=== PATIENT | male | born 1940 | race Caucasian/White ===

== ENCOUNTER 2017-05-30 09:53 | Emergency (ER) | payer MEDICARE, OTHER ==
[~2017-05-30] VITALS: Ht 172.7 cm; Wt 80.7 kg
[~2017-05-30 09:53] MED LIST: ALBU90OI61 INH; AMLO5 PO; ASPI325 PO; AZIT250 PO; Amlodipine Besy10 MG PO; Aspir 8181 MG PO; CHOL10002; CLOP75 PO; CYCL10 PO; ERGO50000 PO; GABA300 PO; HYDACE5 PO; HYDROCODON-ACE1 EAC2 PO; Hydrocodone-Ap1 EA20 PO; LISHYD1012 PO; MELO7.5 PO; Monodox100 MG PO; NAPR500 PO; POTA10T PO; PRED20 PO; PROCODE120 PO; Prednisone20 MG PO
[2017-05-30] MEDS ORDERED: Cheratussin AC118 ML PO (11:43)
[2017-05-30] MEDS ORDERED: Mucinex600 MG PO (11:43)
[2017-05-30] MEDS ORDERED: Flonase 0.05% N16 GM (11:43)
== END 2017-05-30 11:48 | disposition home or self-care (01) ==
LOC: ER 09:53
DX: J31.0 Chronic rhinitis (principal); I10 Essential (primary) hypertension; F17.210 Nicotine dependence, cigarettes, uncomplicated; J44.9 Chronic obstructive pulmonary disease, unspecified; Z79.899 Other long term (current) drug therapy; Z79.82 Long term (current) use of aspirin
CPT/HCPCS: 71046; 99283

== ENCOUNTER 2018-08-29 13:05 | Emergency (ER) | payer MEDICARE, OTHER ==
[~2018-08-29] VITALS: Ht 167.6 cm; Wt 79.4 kg
[~2018-08-29 13:05] MED LIST changes: +CITA20 PO; +Cheratussin AC118 ML PO; +Flonase 0.05% N16 GM; +GABA300; +Mucinex600 MG PO
== END 2018-08-29 13:43 | disposition home or self-care (01) ==
LOC: ER 13:05
DX: R05 Cough (principal); Z79.899 Other long term (current) drug therapy; I10 Essential (primary) hypertension; J44.9 Chronic obstructive pulmonary disease, unspecified; F17.200 Nicotine dependence, unspecified, uncomplicated
CPT/HCPCS: 99282

== ENCOUNTER 2018-09-26 21:43 | Emergency (ER) | payer MEDICARE, OTHER ==
[~2018-09-26] VITALS: Ht 167.6 cm; Wt 79.8 kg
[2018-09-26 22:41] LABS: Source, Urine Clean Catch
[2018-09-26 22:43] LABS: Bilirubin, Urine Neg (Neg); Blood, Urine Neg (Neg); Glucose Qualitative, Urine 4+ (Neg); Ketones, Urine Neg (Neg); Leukocyte Esterase, Urine Neg (Neg); Nitrite, Urine Neg (Neg); Protein, Urine Neg (Neg); Urobilinogen, Urine NORM (Normal)
[2018-09-26 22:48] LABS: Appearance, Urine Clear (Clear); Color, Urine Yellow (P-Yellow)
[2018-09-27] MEDS ORDERED: LOVA40 (00:10)
[2018-09-27] MEDS ORDERED: TAMS.4ER PO (00:10)
[2018-09-27] MEDS ORDERED: Nystatin15 GM TOP (00:31)
[2018-09-27] MEDS ORDERED: METF500 PO (00:38)
== END 2018-09-27 00:50 | disposition home or self-care (01) ==
LOC: ER 21:43
PROVIDERS: Emergency Medicine
DX: N48.1 Balanitis (principal); E11.65 Type 2 diabetes mellitus with hyperglycemia; Z79.899 Other long term (current) drug therapy; I10 Essential (primary) hypertension; J44.9 Chronic obstructive pulmonary disease, unspecified; F17.210 Nicotine dependence, cigarettes, uncomplicated
CPT/HCPCS: 81003; 82947; 99283

== ENCOUNTER 2018-12-27 16:44 | Emergency (ER) | payer MEDICARE, OTHER ==
[~2018-12-27] VITALS: Ht 172.7 cm; Wt 77.1 kg
[~2018-12-27 16:44] MED LIST changes: +LOVA40; +METF500 PO; +Nystatin15 GM TOP; +TAMS.4ER PO
[2018-12-27] MEDS ORDERED: Eucerin Creme454 GM TOP (17:01)
== END 2018-12-27 17:38 | disposition home or self-care (01) ==
LOC: ER 16:44
DX: R21 Rash and other nonspecific skin eruption (principal); I10 Essential (primary) hypertension; J44.9 Chronic obstructive pulmonary disease, unspecified; F17.200 Nicotine dependence, unspecified, uncomplicated; Z79.899 Other long term (current) drug therapy; Z79.84 Long term (current) use of oral hypoglycemic drugs
CPT/HCPCS: 99282

== ENCOUNTER → 2019-11-21 | Outpatient (CLI) | payer MEDICARE, OTHER ==
[~2019-11-21] MED LIST changes: +Eucerin Creme454 GM TOP
[2019-11-21 19:57] LABS: BASOPHILS ABSOLUTE AUTO 0.07 K/mm3 (0.00-0.23); BASOPHILS PERCENT AUTO 1 % (0-2); EOSINOPHILS ABSOLUTE AUTO 0.12 K/mm3 (0.00-0.68); EOSINOPHILS PERCENT AUTO 1 % (0-6); Hematocrit 51.1 % (37.0-53.0); Hemoglobin 17.2 g/dL (13.5-17.5); IMMATURE GRAN ABSOLUTE AUTO 0.06 K/mm3 (0.00-0.10); IMMATURE GRAN PERCENT AUTO 1 % (0-1); LYMPHOCYTES ABSOLUTE AUTO 1.53 K/mm3 (0.84-5.20); LYMPHOCYTES PERCENT AUTO 17 % (21-46); MONOCYTES ABSOLUTE AUTO 0.59 K/mm3 (0.16-1.47); MONOCYTES PERCENT AUTO 7 % (4-13); Mean Corpuscular HGB 29.8 pg (26.0-34.0); Mean Corpuscular HGB Conc 33.7 g/dL (31.5-36.5); Mean Corpuscular Volume 89 fL (80-100); Mean Platelet Volume 10.8 fL (9.1-12.4); NEUTROPHILS ABSOLUTE AUTO 6.54 K/mm3 (1.96-9.15); NEUTROPHILS PERCENT AUTO 73 % (41-73); Platelet Count 268 K/mm3 (150-400); RDW Coefficient Variation 12.6 % (11.7-14.2); RDW Standard Deviation 40.8 fL (35.1-46.3); Red Blood Cell Count 5.77 M/mm3 (4.30-5.90); White Blood Cell Count 8.91 K/mm3 (4.00-11.30)
[2019-11-21 20:18] LABS: Alanine Aminotransfer (ALT/SGP 21 U/L (12-78); Albumin, Blood 4.1 g/dL (3.4-5.0); Alk Phos 87 U/L (50-136); Anion Gap 9 mmol/L (6-16); Aspartate Aminotrans (AST/SGOT 10 U/L (12-37); Bilirubin, Total 0.4 mg/dL (0.1-1.0); Blood Urea Nitrogen 9 mg/dL (8-24); Bun/Creatinine Ratio 12.8 (12.0-20.0); CO2, Blood 26 mmol/L (21-32); Calcium, Blood 9.6 mg/dL (8.5-10.1); Chloride, Blood 99 mmol/L (98-108); Cholesterol 183 mg/dL (50-200); Globulin, Blood 4.1 g/dL (2.2-4.0); Glomerular Filtration Rate >60 (60-); Glucose, Blood 452 mg/dL (70-99); Potassium, Blood 4.3 mmol/L (3.5-5.5); Sodium, Blood 134 mmol/L (136-145); Total Protein, Blood 8.2 g/dL (6.4-8.2); Triglycerides 161 mg/dL (30-160); Very Low Density Lipoprot Chol 32 mg/dL (6-32)
[2019-11-21 20:26] LABS: CHOL/HDL RATIO 3.6; HDL Cholesterol 51 mg/dL (>39); Low Density Lipoprotein Chol 100 mg/dL (0-110)
[2019-11-22 12:20] LABS: PSA, %Free 22.9 %; PSA, Free 0.346 ng/mL
== END | disposition home or self-care (01) ==
LOC: LAB SHORT 19:35 → LAB 19:35
PROVIDERS: Family Medicine
DX: N39.41 Urge incontinence (principal); E11.65 Type 2 diabetes mellitus with hyperglycemia; R39.12 Poor urinary stream; I10 Essential (primary) hypertension
CPT/HCPCS: 80053; 80061; 84153; 84154; 84443; 85025

== ENCOUNTER 2019-11-22 00:25 | Emergency (ER) | payer MEDICARE, OTHER ==
[~2019-11-22] VITALS: Ht 172.7 cm; Wt 70.3 kg
[2019-11-22 02:20] LABS: BASOPHILS PERCENT AUTO 1 % (0-2); EOSINOPHILS ABSOLUTE AUTO 0.07 K/mm3 (0.00-0.68); EOSINOPHILS PERCENT AUTO 1 % (0-6); IMMATURE GRAN ABSOLUTE AUTO 0.07 K/mm3 (0.00-0.10); IMMATURE GRAN PERCENT AUTO 1 % (0-1); LYMPHOCYTES ABSOLUTE AUTO 2.05 K/mm3 (0.84-5.20); LYMPHOCYTES PERCENT AUTO 17 % (21-46); MONOCYTES ABSOLUTE AUTO 1.04 K/mm3 (0.16-1.47); MONOCYTES PERCENT AUTO 8 % (4-13); Mean Corpuscular Volume 88 fL (80-100); NEUTROPHILS ABSOLUTE AUTO 9.03 K/mm3 (1.96-9.15); NEUTROPHILS PERCENT AUTO 73 % (41-73); Platelet Count 249 K/mm3 (150-400); RDW Coefficient Variation 12.7 % (11.7-14.2); RDW Standard Deviation 41.1 fL (35.1-46.3); Red Blood Cell Count 5.67 M/mm3 (4.30-5.90); White Blood Cell Count 12.36 K/mm3 (4.00-11.30)
[2019-11-22 02:37] LABS: Base Excess Venous 3.3 mmol/L; Bicarbonate Venous 27.1 mmol/L (24.0-30.0); PCO2 Venous 40.9 mmHg (38-42); PO2 Venous 157 mmHg (38-42); pH Blood Venous 7.44 (7.34-7.37)
[2019-11-22 02:46] LABS: Alanine Aminotransfer (ALT/SGP 17 U/L (12-78); Albumin, Blood 3.9 g/dL (3.4-5.0); Alk Phos 85 U/L (50-136); Anion Gap 10 mmol/L (6-16); Aspartate Aminotrans (AST/SGOT 10 U/L (12-37); Beta-hydroxybutyrate 2.7 mg/dL (0.2-2.8); Bilirubin, Total 0.7 mg/dL (0.1-1.0); Blood Urea Nitrogen 10 mg/dL (8-24); Bun/Creatinine Ratio 13.9 (12.0-20.0); CO2, Blood 26 mmol/L (21-32); Calcium, Blood 9.3 mg/dL (8.5-10.1); Chloride, Blood 99 mmol/L (98-108); Creatinine, Blood 0.72 mg/dL (0.60-1.20); Globulin, Blood 3.9 g/dL (2.2-4.0); Glomerular Filtration Rate >60 (60-); Glucose, Blood 266 mg/dL (70-99); Potassium, Blood 3.6 mmol/L (3.5-5.5); Sodium, Blood 135 mmol/L (136-145); Total Protein, Blood 7.8 g/dL (6.4-8.2)
== END 2019-11-22 03:58 | disposition home or self-care (01) ==
LOC: ER 00:25
PROVIDERS: Emergency Medicine
DX: E11.65 Type 2 diabetes mellitus with hyperglycemia (principal); I10 Essential (primary) hypertension; J44.9 Chronic obstructive pulmonary disease, unspecified; F17.210 Nicotine dependence, cigarettes, uncomplicated; Z79.02 Long term (current) use of antithrombotics/antiplatelets; Z79.84 Long term (current) use of oral hypoglycemic drugs; Z79.899 Other long term (current) drug therapy
CPT/HCPCS: 80053; 82010; 82803; 82947; 83690; 85025; 96360; 99283-25; J7030

== ENCOUNTER → 2020-11-14 | Outpatient (CLI) | payer MEDICARE, OTHER ==
[2020-11-14 19:27] LABS: Alanine Aminotransfer (ALT/SGP 21 U/L (12-78); Alk Phos 66 U/L (50-136); Anion Gap 6 mmol/L (6-16); Aspartate Aminotrans (AST/SGOT 16 U/L (12-37); Bilirubin, Total 0.4 mg/dL (0.1-1.0); Blood Urea Nitrogen 10 mg/dL (8-24); Bun/Creatinine Ratio 14.1 (12.0-20.0); CO2, Blood 27 mmol/L (21-32); Calcium, Blood 9.5 mg/dL (8.5-10.1); Chloride, Blood 104 mmol/L (98-108); Creatinine, Blood 0.71 mg/dL (0.60-1.20); Glomerular Filtration Rate >60 (60-); Glucose, Blood 73 mg/dL (70-99); Potassium, Blood 3.8 mmol/L (3.5-5.5); Sodium, Blood 137 mmol/L (136-145)
[2020-11-14 19:30] LABS: CHOL/HDL RATIO 4.2; Cholesterol 213 mg/dL (50-200); HDL Cholesterol 51 mg/dL (>39); LDL/HDL RATIO 2.3; Low Density Lipoprotein Chol 118 mg/dL (0-110); Triglycerides 221 mg/dL (30-160); Very Low Density Lipoprot Chol 44 mg/dL (6-32)
== END | disposition home or self-care (01) ==
LOC: LAB SHORT 18:17 → LAB 18:17
PROVIDERS: Family Medicine
DX: Z00.00 Encounter for general adult medical examination without abnormal findings (principal); Z11.59 Encounter for screening for other viral diseases; E78.2 Mixed hyperlipidemia
CPT/HCPCS: 80053; 80061; 86803

== ENCOUNTER 2021-01-15 15:20 | Emergency (ER) | payer OTHER, MEDICARE ==
[~2021-01-15] VITALS: Ht 167.6 cm; Wt 77.1 kg
[2021-01-15] MEDS ORDERED: LIDO700A20 TOP (16:19)
[2021-01-15] MEDS ORDERED: CYCL10 PO (16:19)
== END 2021-01-15 16:34 | disposition home or self-care (01) ==
LOC: ER 15:20
DX: S39.012A Strain of muscle, fascia and tendon of lower back, initial encounter (principal); I10 Essential (primary) hypertension; J44.9 Chronic obstructive pulmonary disease, unspecified; F17.210 Nicotine dependence, cigarettes, uncomplicated; Z79.84 Long term (current) use of oral hypoglycemic drugs; Z79.899 Other long term (current) drug therapy; V89.9XXA Person injured in unspecified vehicle accident, initial encounter
CPT/HCPCS: 72100; 99283-25; A9270

== ENCOUNTER 2021-01-20 14:24 | Emergency (ER) | payer MEDICARE, OTHER ==
[~2021-01-20] VITALS: Ht 167.6 cm; Wt 77.1 kg
[~2021-01-20 14:24] MED LIST changes: +LIDO700A20 TOP
[2021-01-20] MEDS ORDERED: DOCU100 PO (15:54)
== END 2021-01-20 16:15 | disposition home or self-care (01) ==
LOC: ER 14:24
DX: K59.00 Constipation, unspecified (principal); I10 Essential (primary) hypertension; J44.9 Chronic obstructive pulmonary disease, unspecified; F17.210 Nicotine dependence, cigarettes, uncomplicated; Z79.899 Other long term (current) drug therapy
CPT/HCPCS: 74018; 99283-25; A9270

== ENCOUNTER → 2021-06-29 | Outpatient (CLI) | payer MEDICARE, OTHER ==
[~2021-06-29] MED LIST changes: +ASPI81CH PO; +CILO100 PO; +DOCU100 PO; +DONEPEZIL HCL5 M2 PO; +GLIP5ER PO; +GLYBURIDE5 MG PO; -LOVA40; +Lovastatin20 MG PO
[2021-06-29 22:16] LABS: Free Thyroxine 1.02 ng/dL (0.70-1.60); Thyroid Stimulating Hormone 7.27 uIU/mL (0.360-4.800)
== END | disposition home or self-care (01) ==
LOC: LAB SHORT 16:20
PROVIDERS: Family Medicine
DX: E11.65 Type 2 diabetes mellitus with hyperglycemia (principal); R79.89 Other specified abnormal findings of blood chemistry
CPT/HCPCS: 83036; 84439; 84443

== ENCOUNTER 2021-07-01 10:11 | Day surgery (SDC) | payer MEDICARE, OTHER ==
[~2021-07-01] VITALS: Ht 167.6 cm; Wt 77.0 kg
[2021-07-01 11:16] LABS: BASOPHILS ABSOLUTE AUTO 0.07 K/mm3 (0.00-0.23); BASOPHILS PERCENT AUTO 1 % (0-2); EOSINOPHILS ABSOLUTE AUTO 0.19 K/mm3 (0.00-0.68); EOSINOPHILS PERCENT AUTO 2 % (0-6); Hematocrit 48.8 % (37.0-53.0); IMMATURE GRAN ABSOLUTE AUTO 0.05 K/mm3 (0.00-0.10); IMMATURE GRAN PERCENT AUTO 1 % (0-1); LYMPHOCYTES ABSOLUTE AUTO 2.01 K/mm3 (0.84-5.20); LYMPHOCYTES PERCENT AUTO 24 % (21-46); MONOCYTES ABSOLUTE AUTO 0.64 K/mm3 (0.16-1.47); MONOCYTES PERCENT AUTO 8 % (4-13); Mean Corpuscular HGB 31.2 pg (26.0-34.0); Mean Corpuscular HGB Conc 34.8 g/dL (31.5-36.5); Mean Corpuscular Volume 90 fL (80-100); Mean Platelet Volume 9.7 fL (9.1-12.4); NEUTROPHILS ABSOLUTE AUTO 5.44 K/mm3 (1.96-9.15); NEUTROPHILS PERCENT AUTO 65 % (41-73); Platelet Count 263 K/mm3 (150-400); RDW Coefficient Variation 13.8 % (11.7-14.2); RDW Standard Deviation 44.8 fL (35.1-46.3); Red Blood Cell Count 5.45 M/mm3 (4.30-5.90)
[2021-07-01 11:29] LABS: International Normalized Ratio 1.02; Prothrombin Time Results 10.7 Sec (9.7-11.5)
[2021-07-01 11:37] LABS: Bun/Creatinine Ratio 14.5 (12.0-20.0); Calcium, Blood 9.1 mg/dL (8.5-10.1); Creatinine, Blood 0.76 mg/dL (0.60-1.20); Potassium, Blood 3.9 mmol/L (3.5-5.5)
== END 2021-07-01 23:28 | disposition home or self-care (01) ==
LOC: MHTC 10:11
PROVIDERS: Radiology Diagnostic Radiology
DX: I70.223 Atherosclerosis of native arteries of extremities with rest pain, bilateral legs (principal); I10 Essential (primary) hypertension; E78.5 Hyperlipidemia, unspecified; F17.210 Nicotine dependence, cigarettes, uncomplicated; J44.9 Chronic obstructive pulmonary disease, unspecified; Z79.84 Long term (current) use of oral hypoglycemic drugs
CPT/HCPCS: 37221; 37224; 37228; 75625; 75716; 75774; 76937; 80048; 85025; 85347; 85610; 99152; 99153; C1725; C1760; C1769; C1876; C1887; C1894; J1644; J2250; J3010; J7030; J7040; Q9967

== ENCOUNTER 2021-07-15 10:30 | Day surgery (SDC) | payer MEDICARE, OTHER ==
[~2021-07-15] VITALS: Ht 167.6 cm; Wt 77.1 kg
--- NOTE | 2021-07-15 14:17 | NUR ---
ASSUMED CARE OF PT FROM BETSY GARDINER. PT IN RECOVERY ROOM POST PROCEDURE. LEFT GROIN AND RIGHT FOOT WITH ARTERIAL ACCESS SITES. BOTH APPEAR TO BE SOFT NON TEDNER WITH NO BLEEDING OR ACTIVE OOZING NOTED. PT AOX4, TOLERATES PO FLUID WITH NO DIFFICULTIES. DENIES PAIN. PROVIDED WITH TELEVISION FOR ENTERTAINMENT.NO DISTRESS AT THIS TIME. CALL LIGHT IN REACH. VSS.
[2021-07-15] MEDS ORDERED: CLOP75 PO (14:23)
--- NOTE | 2021-07-15 14:25 | NUR ---
NEW PRESCRIPTIONS CALLED INTO [facility] PER PT REQUEST.
--- NOTE | 2021-07-15 15:20 | NUR ---
PT PREVIOUSLY UP TO RESTROOM, RIGHT POST TIBIAL ARTERIAL SITE HAD BEGAN TO BLEED WHILE AMBULATING BACK TO BED. 10 MINUTES MANUAL PRESSURE HELD, HEMOSTASIS OBTAINED. NEW BONIFACIO PAD PLACED OVER SITE. NO SWELLING OR BRUISING NOTED. LEFT FEMORAL ARTERIAL SITE REMAINS SOFT, NON TENDER, NO BLEEDING. ANGIOSEAL DEVICE USED AT END OF PROCEDURE. DRESSING STILL C/D/I. WILL CONTINUE TO MONITOR BOTH SITES.
--- NOTE | 2021-07-15 16:15 | NUR ---
PT AMB TO BATHRROM WITHOUT ANY ISSUES, GROIN AND PEDAL SITE NO SWELLING/HEMATOMA, DRSGS INTACT. PT DRESSED SELF, SITES REMAIN UNCHANGED; IV REMOVED-CANNULA INTACT.
--- NOTE | 2021-07-15 16:35 | NUR ---
PT RECEIVED DISCHARGE INSTRUCTIONS, SITE MANAGEMENT, MED LIST AND AFTER CARE INSTURCTIONS; VERBALIZED GOOD UNDERSTANDING. PT LEFT FACILITY VIA W/C, CONDITION STABLE.
== END 2021-07-15 16:35 | disposition home or self-care (01) ==
LOC: MHTC 10:30
DX: I70.223 Atherosclerosis of native arteries of extremities with rest pain, bilateral legs (principal); I10 Essential (primary) hypertension; J44.9 Chronic obstructive pulmonary disease, unspecified
CPT/HCPCS: 76937; 85347; 99152; 99153; C1725; C1760; C1769; C1887; C1894; C2623; J1644; J2250; J3010; J7030; J7040; Q9967

== ENCOUNTER → 2022-12-07 | Outpatient (CLI) | payer MEDICARE, OTHER | LOC: LAB 10:02 → LAB SHORT 10:02 | DX: L82.1 Other seborrheic keratosis (principal) | CPT/HCPCS: 88305 ==

== ENCOUNTER 2023-06-21 17:07 | Inpatient (IN) | payer MEDICARE, OTHER ==
[~2023-06-21] VITALS: Ht 167.6 cm; Wt 64.7 kg
[2023-06-21 17:44] LABS: BASOPHILS ABSOLUTE AUTO 0.02 K/mm3 (0.00-0.23); BASOPHILS PERCENT AUTO 0 % (0-2); EOSINOPHILS ABSOLUTE AUTO 0.03 K/mm3 (0.00-0.68); EOSINOPHILS PERCENT AUTO 0 % (0-6); Hematocrit 51.1 % (37.0-53.0); Hemoglobin 16.8 g/dL (13.5-17.5); IMMATURE GRAN ABSOLUTE AUTO 0.02 K/mm3 (0.00-0.10); IMMATURE GRAN PERCENT AUTO 0 % (0-1); LYMPHOCYTES ABSOLUTE AUTO 1.08 K/mm3 (0.84-5.20); LYMPHOCYTES PERCENT AUTO 15 % (21-46); MONOCYTES ABSOLUTE AUTO 0.57 K/mm3 (0.16-1.47); MONOCYTES PERCENT AUTO 8 % (4-13); Mean Corpuscular HGB 30.5 pg (26.0-34.0); Mean Corpuscular HGB Conc 32.9 g/dL (31.5-36.5); Mean Corpuscular Volume 93 fL (80-100); Mean Platelet Volume 11.9 fL (9.1-12.4); NEUTROPHILS ABSOLUTE AUTO 5.57 K/mm3 (1.96-9.15); NEUTROPHILS PERCENT AUTO 76 % (41-73); Platelet Count 204 K/mm3 (150-400); RDW Coefficient Variation 14.1 % (11.7-14.2); RDW Standard Deviation 48.2 fL (35.1-46.3); White Blood Cell Count 7.29 K/mm3 (4.00-11.30)
[2023-06-21 18:00] LABS: Albumin, Blood 3.4 g/dL (3.4-5.0); Albumin/Globulin Ratio 0.9 (0.8-1.8); Bilirubin, Total 1.7 mg/dL (0.1-1.0); Bun/Creatinine Ratio 16.2 (12.0-20.0); Calcium, Blood 8.7 mg/dL (8.5-10.1); Creatinine, Blood 1.11 mg/dL (0.60-1.20); Globulin, Blood 3.6 g/dL (2.2-4.0); Potassium, Blood 3.6 mmol/L (3.5-5.5)
[2023-06-21 18:14] LABS: Source, Urine Clean Catch
[2023-06-21 18:16] LABS: Appearance, Urine Clear (Clear); Blood, Urine 1+ (Neg); Color, Urine Amber (P-Yellow); Glucose Qualitative, Urine 1+ (Neg); Ketones, Urine 1+ (Neg); Leukocyte Esterase, Urine 1+ (Neg); Nitrite, Urine Pos (Neg); Protein, Urine 2+ (Neg); Specific Gravity, Urine 1.025 (1.003-1.022); Urobilinogen, Urine 3+ (Normal)
[2023-06-21 18:23] LABS: Bilirubin, Urine 1+ (Neg)
[2023-06-21 18:24] LABS: Bacteria Many /hpf; Mucus Light (0-Heavy); Renal Epithelial Rare /hpf (0-Rare); Squamous Epithelial Cells Few /hpf (Few)
[2023-06-21 18:25] LABS: Hyaline Casts 0-2 /lpf (0-2)
[2023-06-21] MEDS ORDERED: CefTRIAXone Sodium 1,000 MG in NS 50 ML IV ONE (21:45)
[2023-06-21] MEDS ORDERED: Azithromycin 500 MG in NS 250 ML IV ONE (21:45)
[2023-06-21 22:02] LABS: Magnesium, Blood 2.5 mg/dL (1.6-2.4)
[2023-06-21] MEDS ORDERED: NS 1,000 ML IV SCH (23:00)
[2023-06-22] MEDS ORDERED: Ondansetron HCl 2 MG / ML 2ML Vial IV PRN (04:20)
[2023-06-22 04:56] LABS: Albumin, Blood 3.1 g/dL (3.4-5.0); Bilirubin, Total 1.7 mg/dL (0.1-1.0); Bun/Creatinine Ratio 18.5 (12.0-20.0); Calcium, Blood 8.8 mg/dL (8.5-10.1); Creatinine, Blood 0.97 mg/dL (0.60-1.20); Free Thyroxine 0.97 ng/dL (0.70-1.60); Magnesium, Blood 2.2 mg/dL (1.6-2.4); Potassium, Blood 4.1 mmol/L (3.5-5.5); Thyroid Stimulating Hormone 6.3 uIU/mL (0.360-4.800); Total Protein, Blood 6.1 g/dL (6.4-8.2)
[2023-06-22 05:38] LABS: BASOPHILS ABSOLUTE AUTO 0.02 K/mm3 (0.00-0.23); BASOPHILS PERCENT AUTO 0 % (0-2); EOSINOPHILS ABSOLUTE AUTO 0.02 K/mm3 (0.00-0.68); EOSINOPHILS PERCENT AUTO 0 % (0-6); Hematocrit 47.6 % (37.0-53.0); Hemoglobin 15.6 g/dL (13.5-17.5); IMMATURE GRAN ABSOLUTE AUTO 0.03 K/mm3 (0.00-0.10); IMMATURE GRAN PERCENT AUTO 1 % (0-1); LYMPHOCYTES ABSOLUTE AUTO 0.84 K/mm3 (0.84-5.20); LYMPHOCYTES PERCENT AUTO 13 % (21-46); MONOCYTES ABSOLUTE AUTO 0.41 K/mm3 (0.16-1.47); MONOCYTES PERCENT AUTO 6 % (4-13); Mean Corpuscular HGB 30.7 pg (26.0-34.0); Mean Corpuscular HGB Conc 32.8 g/dL (31.5-36.5); Mean Corpuscular Volume 94 fL (80-100); NEUTROPHILS ABSOLUTE AUTO 5.13 K/mm3 (1.96-9.15); NEUTROPHILS PERCENT AUTO 80 % (41-73); Platelet Count 180 K/mm3 (150-400); RDW Coefficient Variation 14.1 % (11.7-14.2); RDW Standard Deviation 48.7 fL (35.1-46.3); Red Blood Cell Count 5.08 M/mm3 (4.30-5.90); White Blood Cell Count 6.45 K/mm3 (4.00-11.30)
[2023-06-22] MEDS ORDERED: NS 500 ML IV SCH (07:00)
[2023-06-22 07:21] VITALS: BP 91/52
--- NOTE | 2023-06-22 07:21 | NUR ---
0320 Pt arrived from ED via gurney with staff in attendance. Pt able to transfer self with moderate assist from into bed. Pt had dizzy spell in ED, will keep bedrest for now until symptoms resolve. Oriented to room and unit per unit standards and shift plan of care reviewed. All questions answered. Please see full assessment for additional details. No further complaints or concerns at this time, will continue to monitor.
[2023-06-22] MEDS ORDERED: Insulin Human Lispro 100 Units/ML 3ML Syringe SC SCH (07:30)
[2023-06-22 08:21] VITALS: BP 128/94
[2023-06-22] MEDS ORDERED: Clopidogrel Bisulfate 75 MG Tab PO SCH (09:00)
[2023-06-22] MEDS ORDERED: Cilostazol 50 MG Tab PO SCH (09:00)
[2023-06-22] MEDS ORDERED: Enoxaparin 40 MG/0.4 ML SYR SC SCH (09:00)
[2023-06-22] MEDS ORDERED: Docusate Sodium 100 MG Cap PO SCH (09:00)
[2023-06-22] MEDS ORDERED: Tamsulosin HCl 0.4 MG Cap PO SCH (09:00)
[2023-06-22] MEDS ORDERED: Aspirin 81 MG Chew PO SCH (09:00)
[2023-06-22] MEDS ORDERED: AmLODIPine Besylate 5 MG Tab PO SCH (09:00)
[2023-06-22] MEDS ORDERED: Lactobacil 2-S.Thermo-Bifido 1 1 Cap PO SCH (09:00)
[2023-06-22] MEDS ORDERED: ONDA4ODT MM (09:04)
[2023-06-22 09:42] LABS: Adenovirus Not Detected (NOT DETECT); Bordetella pertussis Not Detected (NOT DETECT); Chlamydophila pneumoniae Not Detected (NOT DETECT); Coronavirus 229E Not Detected (NOT DETECT); Coronavirus HKU1 Not Detected (NOT DETECT); Coronavirus NL63 Not Detected (NOT DETECT); Coronavirus OC43 Not Detected (NOT DETECT); Human Metapneumovirus Not Detected (NOT DETECT); Human Rhinovirus/Enterovirus Not Detected (NOT DETECT); Influenza A/2009-H1 Not Detected (NOT DETECT); Influenza A/H1 Not Detected (NOT DETECT); Influenza A/H3 Not Detected (NOT DETECT); Influenza B Not Detected (NOT DETECT); Mycoplasma pneumoniae Not Detected (NOT DETECT); Parainfluenza Virus 1 Not Detected (NOT DETECT); Parainfluenza Virus 2 Not Detected (NOT DETECT); Parainfluenza Virus 3 Not Detected (NOT DETECT); Parainfluenza Virus 4 Not Detected (NOT DETECT); Respiratory Syncytial Virus Not Detected (NOT DETECT); SARS-Cov-2 (COVID-19), BioFire Not Detected (NOT DETECT)
[2023-06-22] MEDS ORDERED: Miconazole Nitrate 2% 85 GM PWD TOP SCH (11:00)
[2023-06-22 11:54] VITALS: BP 133/98
[2023-06-22] MEDS ORDERED: Nicotine 21 MG PATCH TOP SCH (13:25)
[2023-06-22 15:35] VITALS: BP 110/84
--- NOTE | 2023-06-22 16:56 | NUR ---
SHIFT SUMMARY PT A&O X1, COOPERATIVE WITH CARE. VSS, LUNGS DIMINISHED IN THE BASES, AFEBRILE. SPO2 >90% ON RA. PT HAD ECHO AND CT CHEST COMPLETED TODAY. HE ALSO WORKED WITH OT AND PHYSICAL THERAPY THIS SHIFT. PT WAS UP TO CHAIR FOR LUNCH. HE IS NOW RESTING COMFORTABLY IN BED, CALL LIGHT WITHIN REACH, BREATHING EVEN AND UNLABORED.
[2023-06-22] MEDS ORDERED: Furosemide 10 MG / ML 2ML Vial IV ONE (17:00)
[2023-06-22] MEDS ORDERED: Furosemide 10 MG / ML 2ML Vial IV SCH (18:00)
[2023-06-22] MEDS ORDERED: Albuterol 2.5 MG/3 ML VIAL INH PRN (18:10)
[2023-06-22 20:09] VITALS: BP 101/75
[2023-06-22] MEDS ORDERED: Donepezil HCl 5 MG Tab PO SCH (21:00)
[2023-06-22] MEDS ORDERED: Metoprolol Tartrate 25 MG Tab PO SCH (21:00)
[2023-06-22] MEDS ORDERED: CefTRIAXone Sodium 1,000 MG in NS 100 ML IV SCH (21:00)
[2023-06-22] MEDS ORDERED: NS 250 ML IV PRN (21:30)
[2023-06-22 21:33] LABS: Bun/Creatinine Ratio 17.7 (12.0-20.0); Calcium, Blood 8.7 mg/dL (8.5-10.1); Creatinine, Blood 1.24 mg/dL (0.60-1.20); Potassium, Blood 3.6 mmol/L (3.5-5.5)
[2023-06-22 23:26] VITALS: BP 101/77
--- NOTE | 2023-06-23 04:06 | NUR ---
1915 Assumed care of pt, bedside report completed. Shift plan of care reviewed with pt and all questions answered. Will need repeateded reenforcement as Pt with with significant baseline dementia. Pt in camera room and bed/chair alarm in use for safety. 0100 Pt impulsivity posing risk for pt safety. Move to room closer to nurses station for closer observation. Continue all other fall prevention measures. Pt slept in brief periods this shift, though has no specific complaints while awake. Pt appears to have difficulity discerning day from night despite frequent re-orientation from nursing staff. Pt continues to diuresis, condom catheter has been unsucessful due to inability to stay on. Attends in place and weighing attends to calculate I and O. NPO since midnight as per MD order. Reinforce plan of care with pt frequently. Please see full assessment for additional details. No further complaints or concerns at this time, will continue to monitor.
[2023-06-23 04:38] LABS: BASOPHILS ABSOLUTE AUTO 0.03 K/mm3 (0.00-0.23); BASOPHILS PERCENT AUTO 1 % (0-2); EOSINOPHILS ABSOLUTE AUTO 0.03 K/mm3 (0.00-0.68); EOSINOPHILS PERCENT AUTO 1 % (0-6); Hematocrit 42.6 % (37.0-53.0); Hemoglobin 14.3 g/dL (13.5-17.5); IMMATURE GRAN ABSOLUTE AUTO 0.01 K/mm3 (0.00-0.10); IMMATURE GRAN PERCENT AUTO 0 % (0-1); LYMPHOCYTES ABSOLUTE AUTO 0.71 K/mm3 (0.84-5.20); LYMPHOCYTES PERCENT AUTO 12 % (21-46); MONOCYTES ABSOLUTE AUTO 0.44 K/mm3 (0.16-1.47); MONOCYTES PERCENT AUTO 8 % (4-13); Mean Corpuscular HGB 30.4 pg (26.0-34.0); Mean Corpuscular HGB Conc 33.6 g/dL (31.5-36.5); Mean Corpuscular Volume 90 fL (80-100); Mean Platelet Volume 11.9 fL (9.1-12.4); NEUTROPHILS PERCENT AUTO 79 % (41-73); Platelet Count 160 K/mm3 (150-400); RDW Coefficient Variation 13.9 % (11.7-14.2); RDW Standard Deviation 46.5 fL (35.1-46.3); Red Blood Cell Count 4.71 M/mm3 (4.30-5.90); White Blood Cell Count 5.82 K/mm3 (4.00-11.30)
[2023-06-23 05:12] LABS: Albumin, Blood 2.8 g/dL (3.4-5.0); Bun/Creatinine Ratio 20.4 (12.0-20.0); Calcium, Blood 8.5 mg/dL (8.5-10.1); Creatinine, Blood 1.13 mg/dL (0.60-1.20); Globulin, Blood 2.8 g/dL (2.2-4.0); Potassium, Blood 3.3 mmol/L (3.5-5.5); Total Protein, Blood 5.6 g/dL (6.4-8.2)
[2023-06-23 07:54] VITALS: BP 110/72
--- NOTE | 2023-06-23 07:57 | NUR ---
[id number] Blood pressure cuff misaligned and auto check gave presumed inaccurate reading of 79/60. Pt is sleeping. Cuff was corrected and pt repositioned and b/p reading while Dr. Magaña here was 110/72 (83). Pt is difficult to awaken, sleeping heavily. Does awaken with tactile and verbal stimuli. Per noc shift the pt was awake for most of the night. Too lethargic for p.o. intake at this time.
[2023-06-23] MEDS ORDERED: Potassium Chloride 20 MEQ TabCR PO SCH ×2 (08:00)
[2023-06-23] MEDS ORDERED: Nicotine 21 MG PATCH TOP SCH (09:00)
[2023-06-23] MEDS ORDERED: Losartan Potassium 25 MG Tab PO SCH (09:00)
[2023-06-23] MEDS ORDERED: Empagliflozin 10 MG TAB PO SCH (09:00)
[2023-06-23] MEDS ORDERED: Metoprolol Tartrate 25 MG Tab PO SCH ×2 (09:00→21:00)
--- NOTE | 2023-06-23 11:03 | NUR ---
1045 Pt down to imaging for pictures.
[2023-06-23 11:18] VITALS: BP 92/70
[2023-06-23] MEDS ORDERED: Metoprolol Succinate 25 MG TABCR PO SCH (12:00)
--- NOTE | 2023-06-23 12:39 | NUR ---
Pt is on room air, spo2 94%. 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
[2023-06-23] MEDS ORDERED: Regadenoson 0.4 MG/5 ML SYRINGE ONE (13:51)
[2023-06-23] MEDS ORDERED: Aminophylline 250MG / 10ML 10 ML Vial ONE (13:51)
--- NOTE | 2023-06-23 14:24 | NUR ---
SECOND PORTION OF STRESS TEST IN PROGRESS.
[2023-06-23 19:44] VITALS: BP 102/78
[2023-06-24 00:17] VITALS: BP 99/72
--- NOTE | 2023-06-24 06:07 | NUR ---
1915 Assumed care of pt, bedside report completed. Shift plan of care reviewed, all questions answered. Pt had uneventful shift, appearing to sleep better this shift than last 2 prior night shifts. Room close to nurse station and bed alarm on medium sensativity due to impulsivity/climbing out of bed. Please see full assessment for addtional details. No further complaints or concerns at this time, will continue to monitor.
[2023-06-24 07:28] LABS: BASOPHILS ABSOLUTE AUTO 0.03 K/mm3 (0.00-0.23); BASOPHILS PERCENT AUTO 1 % (0-2); EOSINOPHILS ABSOLUTE AUTO 0.07 K/mm3 (0.00-0.68); EOSINOPHILS PERCENT AUTO 1 % (0-6); Hematocrit 45.7 % (37.0-53.0); Hemoglobin 14.9 g/dL (13.5-17.5); IMMATURE GRAN ABSOLUTE AUTO 0.01 K/mm3 (0.00-0.10); IMMATURE GRAN PERCENT AUTO 0 % (0-1); LYMPHOCYTES ABSOLUTE AUTO 1.08 K/mm3 (0.84-5.20); LYMPHOCYTES PERCENT AUTO 19 % (21-46); MONOCYTES ABSOLUTE AUTO 0.46 K/mm3 (0.16-1.47); MONOCYTES PERCENT AUTO 8 % (4-13); Mean Corpuscular HGB 30.5 pg (26.0-34.0); Mean Corpuscular HGB Conc 32.6 g/dL (31.5-36.5); Mean Corpuscular Volume 94 fL (80-100); NEUTROPHILS PERCENT AUTO 71 % (41-73); Platelet Count 174 K/mm3 (150-400); RDW Standard Deviation 48.2 fL (35.1-46.3); Red Blood Cell Count 4.88 M/mm3 (4.30-5.90); White Blood Cell Count 5.75 K/mm3 (4.00-11.30)
[2023-06-24 07:34] VITALS: BP 93/66
[2023-06-24 08:06] LABS: Albumin, Blood 2.9 g/dL (3.4-5.0); Bilirubin, Total 0.8 mg/dL (0.1-1.0); Bun/Creatinine Ratio 21.3 (12.0-20.0); Calcium, Blood 8.7 mg/dL (8.5-10.1); Creatinine, Blood 1.27 mg/dL (0.60-1.20); Potassium, Blood 3.9 mmol/L (3.5-5.5); Total Protein, Blood 5.9 g/dL (6.4-8.2)
[2023-06-24] MEDS ORDERED: Metoprolol Succinate 25 MG TABCR PO SCH (09:00)
--- NOTE | 2023-06-24 10:07 | NUR ---
AM NOTE this rn assumed care at 0700. vital signs stable. tele sinus rhythm. patient is alert and oriented to self. patient states the month being , said he is [place], and unable to state the year. this rn informed the patient of being in the hospital and in [facility]. patient is cooperative with care and able to make needs known. perrla. patient denies pain, chest pain/pressure or shortness of breath. see shift assessment for further detials. patient had a shower and linen changed md yu and team of residents in to see patient this am. occupational therapy in to do cognitive eval, see their assessment for further detials. physical therapy in and working with patient. plan of care is up to date.
[2023-06-24 11:56] VITALS: BP 95/67
[2023-06-24 16:43] VITALS: BP 94/72
[2023-06-24] MEDS ORDERED: Potassium Chloride 10 Meq Tablet SA PO SCH (17:00)
--- NOTE | 2023-06-24 18:38 | NUR ---
SHIFT SUMMARY this rn updated songlo. son to be here tomorrow to discuss goals of care. vital signs remained stable. tele sinus rhythm 70-80.neuro remains unchanged. no acute changes. plan of care up to date
[2023-06-24 20:00] VITALS: BP 94/71
[2023-06-25] VITALS: BP 90/69
[2023-06-25 03:55] LABS: BASOPHILS ABSOLUTE AUTO 0.03 K/mm3 (0.00-0.23); BASOPHILS PERCENT AUTO 1 % (0-2); EOSINOPHILS ABSOLUTE AUTO 0.06 K/mm3 (0.00-0.68); EOSINOPHILS PERCENT AUTO 1 % (0-6); Hematocrit 46.8 % (37.0-53.0); Hemoglobin 15.1 g/dL (13.5-17.5); IMMATURE GRAN ABSOLUTE AUTO 0.02 K/mm3 (0.00-0.10); IMMATURE GRAN PERCENT AUTO 0 % (0-1); LYMPHOCYTES ABSOLUTE AUTO 0.85 K/mm3 (0.84-5.20); LYMPHOCYTES PERCENT AUTO 14 % (21-46); MONOCYTES PERCENT AUTO 7 % (4-13); Mean Corpuscular HGB Conc 32.3 g/dL (31.5-36.5); Mean Corpuscular Volume 93 fL (80-100); Mean Platelet Volume 11.9 fL (9.1-12.4); NEUTROPHILS PERCENT AUTO 77 % (41-73); Platelet Count 165 K/mm3 (150-400); RDW Standard Deviation 47.7 fL (35.1-46.3); Red Blood Cell Count 5.04 M/mm3 (4.30-5.90); White Blood Cell Count 5.96 K/mm3 (4.00-11.30)
[2023-06-25 04:21] LABS: Calcium, Blood 8.8 mg/dL (8.5-10.1)
[2023-06-25 05:00] VITALS: BP 93/66
--- NOTE | 2023-06-25 06:17 | NUR ---
SHIFT SUMMARY PT A&O X1-2; SELF AND ABLE TO IDENTIFY HE IS AT "[facility]" HOWEVER CANNOT IDENTIFY WHICH STATE AND/OR CITY HE IS IN. PT CALM AND COOPERATIVE WITH CARE. PT REMAINS ON RA - 2 LPM NC NEEDED, SPO2 GREATER THAN 97%. SBP SOFT 90 - 94 ALL MAPS GREATER THAN 65, SR WITH RATE IN 70'S, AFEBRILE. PT RESTED WELL DURING THE NIGHT, MINIMAL ATTEMPTS TO EXIT BED. BED ALARM ON. PT USING URINAL WITH ASSISTANCE. ATTENDS IN PLACE, SKIN EXORIATED IN GROIN AREA. ABX PER APR. 800 MLS FLUID RESTRICTION MET FOR NOC SHIFT. CALL LIGHT IN REACH, PT NOT USING AT THIS TIME BUT IS ATTEMPTING TO CALL OUT WHEN NEEDING ASSISTANCE AT TIMES. OTHERWISE BED ALARM IN PLACE AND ROUNDING COMPLETED. WILL UPDATE ONCOMING RN
[2023-06-25 07:23] VITALS: BP 101/78
[2023-06-25] MEDS ORDERED: Potassium Chloride 20 MEQ TabCR PO SCH (09:00)
[2023-06-25] MEDS ORDERED: Furosemide 40 MG Tab PO SCH (09:00)
--- NOTE | 2023-06-25 09:53 | NUR ---
AM NOTE this rn assumed care at 0700. vital signs stable. tele sinus rhythm bbb 60-70. spo2 >90% on 2l nc. patient is alert. patient is able to tell me he is in [place], when given four options able to say he is at the hospital. perrla. forgetful at times. bed alarm on. denies pain, chest pain/pressure, or shortness of breath. see shift assessment for further detials. md arce and team of residents came to see the patient. patient switched to medical status with tele.
--- NOTE | 2023-06-25 11:14 | NUR ---
transfer of care this rn gave report to [place] on medical floor. patient moving to room 345. this rn called songlo, and updated on moving to new room and patient current condition. patient left with all belongings. blocker and cutter contact lens, knifes, and ciggerttes in green medical bag to be locked back in drawer. no acute changes since previous note. plan of care remains up to date
[2023-06-25 14:40] VITALS: BP 91/76
--- NOTE | 2023-06-25 18:30 | NUR ---
TRANSFER AND SHIFT SUMMARY PATIENT TRANSFERED FROM PCU. PATIENT ALERT AND ABLE TO MAKE NEEDS KNOWN. PATIENT ABLE TO AMBULATE INTO BATHROOM WITH STANDBY ASSIST. PATIENT DENIES ANY PAIN AT THIS TIME. PATIENT IS EASILY SOB WITH ANY EXCRETION. PATIENT AWAITING SON'S ARRIVAL FROM [place]. CASE MANAGEMENT TO WORK WITH FAMILY FOR DISCHARGE PLAN.
[2023-06-25 19:46] VITALS: BP 95/78
[2023-06-26 03:07] VITALS: BP 89/62
[2023-06-26 04:15] LABS: BASOPHILS ABSOLUTE AUTO 0.04 K/mm3 (0.00-0.23); BASOPHILS PERCENT AUTO 1 % (0-2); EOSINOPHILS ABSOLUTE AUTO 0.07 K/mm3 (0.00-0.68); EOSINOPHILS PERCENT AUTO 1 % (0-6); Hematocrit 47.6 % (37.0-53.0); Hemoglobin 15.6 g/dL (13.5-17.5); IMMATURE GRAN ABSOLUTE AUTO 0.02 K/mm3 (0.00-0.10); IMMATURE GRAN PERCENT AUTO 0 % (0-1); LYMPHOCYTES ABSOLUTE AUTO 1.04 K/mm3 (0.84-5.20); LYMPHOCYTES PERCENT AUTO 17 % (21-46); MONOCYTES ABSOLUTE AUTO 0.39 K/mm3 (0.16-1.47); MONOCYTES PERCENT AUTO 6 % (4-13); Mean Corpuscular HGB 30.4 pg (26.0-34.0); Mean Corpuscular HGB Conc 32.8 g/dL (31.5-36.5); Mean Corpuscular Volume 93 fL (80-100); Mean Platelet Volume 11.9 fL (9.1-12.4); NEUTROPHILS ABSOLUTE AUTO 4.61 K/mm3 (1.96-9.15); NEUTROPHILS PERCENT AUTO 75 % (41-73); Platelet Count 172 K/mm3 (150-400); RDW Coefficient Variation 13.9 % (11.7-14.2); RDW Standard Deviation 47.2 fL (35.1-46.3); Red Blood Cell Count 5.14 M/mm3 (4.30-5.90); White Blood Cell Count 6.17 K/mm3 (4.00-11.30)
[2023-06-26 04:41] LABS: Bun/Creatinine Ratio 32.1 (12.0-20.0); Potassium, Blood 3.8 mmol/L (3.5-5.5)
--- NOTE | 2023-06-26 05:28 | NUR ---
SHIFT SUMMARY DURING THE NIGHT PT SHOWED INCREASED CONFUSION AND DECREASED ORIENTATION TO SELF & TIME. PT DOES NOT UTILZE CALL LIGHT AND GETS UP WITHOUT STAFF ASSISTANCE, BED ALARM IS ACTIVE. PT HAS BEEN PLEASENT. PT IS A&O X2, ORIENTED TO SELF AND TIME. TELE @78 BPM NS W/ BBB. +2 BUE & +1 BLE PULSES. BP CONTINUES TO BE LOW TRENDING SLOWLY DOWNWARD 89/62 @ 0300. PT IS CONTINENT & USES URINAL BUT ONLY VOIDS IN SMALL AMMOUNTS. PT ORIENTED TO CALL LIGHT AND IS WITHIN REACH.
[2023-06-26 07:54] VITALS: BP 112/85
[2023-06-26] MEDS ORDERED: Spironolactone 25 MG Tab PO SCH (09:00)
[2023-06-26] MEDS ORDERED: Furosemide 20 MG Tab PO SCH (09:00)
[2023-06-26 16:44] VITALS: BP 84/69
--- NOTE | 2023-06-26 18:45 | NUR ---
SHIFT SUMMARY PATIENT ALERT AND INTERACTIVE. PATIENT IMPULSIVE AND NOT REMEMBERING TO USE HIS CALL LIGHT WHEN ATTEMPTING TO GET UP. FAMILY FROM OUT OF STATE SPOKE WITH PROVIDERS REGARDING PATIENT'S CONDITION AND POTENTIAL OUTCOMES. PATIENT UNDECIDED RELATED TO CODE STATUS AT THIS TIME. BLOOD PRESSURES CONTINUE TO BE IN THE HIGH 80'S, HR IRREGULAR AND RESPIRATORY STATUS EASILY DISTRESSED WITH ACTIVITY. DR. CASTRO NOTIFIED OF PATIENT'S SITUATION. NO NEW ORDERS AT THIS TIME.
[2023-06-26 19:16] VITALS: BP 99/67
[2023-06-27 03:40] VITALS: BP 104/79
--- NOTE | 2023-06-27 06:17 | NUR ---
Shift Summary No acute changes. Pt easily becomes dyspnic upon exertion. He is able to stand at the bedsid and use the urinal with 1 sba, although he doesn't call. I placed a continuous O2 monitor on him per previous MD order, no significant desaturaiton events. He does ocassional go down to 88 but then shortly bumps back up above 94%.
[2023-06-27 07:39] VITALS: BP 90/65
[2023-06-27 14:45] VITALS: BP 107/83
--- NOTE | 2023-06-27 15:08 | NUR ---
PER DR. CASTRO, GIVE PO LASIX NOW.
[2023-06-27 16:11] VITALS: BP 115/86
--- NOTE | 2023-06-27 16:44 | NUR ---
SHIFT SUMMARY PT IS ALERT AND ORIENTED X3-4, CONFUSED AT TIMES, ABLE TO MAKE NEEDS KNOWN. 3L NC. PT DESAT MID 80S WITH CONVERSATION. DOES NOT REQUIRE MUCH ACTIVITY FOR DESAT. PT BELONGINGS WENT WITH SON MARYELLEN TODAY. PT AWARE. WALLET IS ALSO WITH MARYELLEN. SBA WITH URINAL DUE TO DESAT, COOPERATIVE WITH CARE. PLAN TO DISCHARGE WITH HOSPISE, LOCATION UNKNOWN.
[2023-06-27 20:02] VITALS: BP 97/76
--- NOTE | 2023-06-28 03:58 | NUR ---
SHIFT SUMMARY ADMITTED FOR RESPIRATORY FAILURE/UTI. DNR CODE. PLAN IS FOR FAMILY TO DECIDE ON FUTURE PLAN OF CARE AND FUTURE PLACEMENT. HE IS ON 3 LPM O2, DESATURATES WITH MOVEMENT OR TALKING. 1800 ML FLUID RESTRICTION. STRICT I&O'S. DAILY WEIGHTS. ADA/CARDIAC DIET. STANDBY ASSIST - BRP. THIS SHIFT HE WAS FREQUENTLY IMPULSIVE BUT ONLY DUE TO URINARY FREQUENCY. HE WAS COOPERATIVE WITH CARE. HE IS CONFUSED, BUT EASY TO REDIRECT. HE IS CONTINENT. BOWEL MOVEMENT THIS SHIFT.
[2023-06-28 06:25] VITALS: BP 91/70
[2023-06-28 07:11] VITALS: BP 94/64
[2023-06-28 10:31] VITALS: BP 114/76
[2023-06-28 15:05] VITALS: BP 98/71
--- NOTE | 2023-06-28 17:00 | NUR ---
DISCUSSED CASE WITH SEBASTIAN RN AND CASE MANAGMENT. PATIENT IS GOING TO BE LEAVING ON HOSPICE, PENDING FAMILY PREPARATION. CALLED PROVIDER TO DISCUSS PLAN, LEFT MESSAGE. PC WILL CONTINUE TO BE AVALIABLE.
--- NOTE | 2023-06-28 18:36 | NUR ---
SHIFT SUMMARY PATIENT WITH NO ACUTE EVENTS DURING SHIFT. HE IS STANDING AT BEDSIDE FOR URINAL USE. HE DENIES ANY COMPLAINTS. HE USES CALL LIGHT AT TIMES, OTHER TIMES IMPULSIVE. BED IN LOW POSITION, CALL LIGHT IN REACH. BED ALARM ON.
[2023-06-28 19:56] VITALS: BP 115/84
[2023-06-29 04:55] VITALS: BP 101/69
--- NOTE | 2023-06-29 05:12 | NUR ---
SHIFT SUMMARY PT. IS A&O 2-3, FORGETFUL, COOP WITH CARE. USING BESIDE URINAL. O2 VIA NC AT 2L,CONTINUOUS MONITORING 95-97% NO COUGH NOTED DURING THIS SHIFT, LS CLER, DIMINISHED ON LOWER LOBES PER AUSCULTATION. AFEBRILE.TELLY: SINUS RHYTHM 72. PT.DENIES N/V.DISCOMFORT, AND PAIN DURING THIS SHIFT. NO ACUTE OVERNIGHT EVENTS/DISTRESS NOTED OR REPORTED. PT HAS RESTED 2-4 HRS DURING THIS SHIFT, UP FOR VOIDING MULTIPLE TIMES. BED AT THE LOWEST POSITION, BED ALARM ACTIVE FOR SAFETY. WILL HANDOFF TO THE INCOMING SHIFT NURSE.
[2023-06-29 07:21] VITALS: BP 91/65
[2023-06-29 10:28] VITALS: BP 94/70
--- NOTE | 2023-06-29 11:41 | NUR ---
PATIENT BLOOD PRESSURE LOW THIS AM. RECHECK IS STILL 90S/60S HR 70S, DR HUGGINS IS OKAY WITH GIVING METOPROLOL OR JUST HAVE PALLIATIVE CONSULT SINCE FAMILY IS WANTING COMFORT MEASURES ONLY PER DAUGHTER IN [place].
[2023-06-29 16:43] VITALS: BP 98/59
--- NOTE | 2023-06-29 16:51 | NUR ---
MET WITH PATIENT HE WAS RESTING IN BED APPEARED TO BE COMFORTABLE. DISCUSSED CASE WITH CASE MANAGMENT AND BEDSIDE RN. FAMILY HAS APTS FOR INSURANCE TOMORROW AND WILL FOLLOW UP WITH CASE MANAGMENT TOMORROW.
--- NOTE | 2023-06-29 18:08 | NUR ---
SHIFT SUMMARY PATIENT WITH NO ACUTE EVENTS DURING SHIFT. HE IS UP TO BATHROOM 1 PERSON SBA. HE IS USING URINAL FREQUENTLY STILL AT THIS TIME. HE USES THE CALL LIGHT INTERMITTENTLY BUT CAN BE IMPULSIVE. BED IN LOW POSITION, CALL LIGHT IN REACH. BED ALARM ON.
[2023-06-29 19:21] VITALS: BP 103/74
--- NOTE | 2023-06-30 04:09 | NUR ---
SHIFT SUMMARY PT. IS A&O X 2-3, RESTING IN BED T/O THIS SHIFT. PT. IS REDIRECTABLE, ABLE TO REORIENT TO THE HOSPITAL ROOM, AND CALL LIGHT. PT. IS PLEASANT AND COOP WITH CARE. LS CLEAR UPPER LOBES, DIMINISHED LL'S PER AUSCULTATION. PT DENIES COUGH OR SOB. O2 SAT'S 95-97/ VSS. HS BG 156, INSULIN ADMINISTERED ORDERED. PT. DENIES DISCOMFORT, O2 2L VIA NC. PT DENIES PAIN. BOWEL TONES HYPERACTIVE. PT/'S PO FLUID INTAKE <300ML DURING THIS SHIFT, H2O WITH PO MEDS, PT.REQUESTS PEPSI FOR DRINKS. BED ALARM FOR SAFETY. PT. AMBULATES TO BATHROOM WITH STANDBY ASSISTANCE FOR SAFETY. NO ACUTE EVENTS/DISTRESS DURING THIS SHIFT. BED AT THE LOWEST POSITION, CALL LIGHT IN REACH. WILL HAND OFF TO THE INCOMING SHIFT NURSE.
[2023-06-30 06:03] VITALS: BP 123/88
[2023-06-30 07:59] VITALS: BP 124/87
[2023-06-30 15:41] VITALS: BP 114/80
--- NOTE | 2023-06-30 16:43 | NUR ---
SHIFT SUMMARY NO ACUTE EVENTS DURING SHIFT. HE IS UP TO BATHROOM AD SAE TODAY. O2 VIA NASAL CANULA. PATIENT USING CALL LIGHT APPROPRIATELY. BED IN LOW POSITION, CALL LIGHT IN REACH.
[2023-06-30 19:57] VITALS: BP 121/79
--- NOTE | 2023-07-01 03:03 | NUR ---
SUMMARY: PT A/OX3-4, CALLS APPROPRIATELY TO SPECIFY NEEDS AND IS PLEASANT AND COOPERATIVE W/CARE. HE'S MILDLY FORGETFUL AT TIMES BUT REDIRECTS EASILY. PT USES URINAL AND IS UP TO TOILET AD SAE W/AWARENESS OF LIMITATIONS, SBA PROVIDED PRN. HE'S MILDLY SOB AT REST AND IS WORSE W/EXERTION BUT SPO2 IS WNL ON 1.5L VIA NC. 1800 ML FR MAINTAINED. HE DENIED PAIN/ALL OTHER COMPLAINTS. NO ACUTE CHANGES, VSS/AFEBRILE. WCTM AND REPORT TO DAY RN.
[2023-07-01 04:49] VITALS: BP 90/66
[2023-07-01 07:21] VITALS: BP 93/72
[2023-07-01 09:57] VITALS: BP 112/81
--- NOTE | 2023-07-01 10:12 | NUR ---
PT IS LETHARGIC, ORIENTED X3. STATES HE IS SLEEPY, DR. NOYOLA AT BEDSIDE. PLAN TO LET PATIENT REST FOR NOW. PT DID NOT WANT TO TAKE MORNING MEDICATIONS.
[2023-07-01 15:08] VITALS: BP 109/89
--- NOTE | 2023-07-01 16:30 | NUR ---
SUMMARY PT HAS SLEPT MOST OF THE DAY, POOR PO INTAKE TODAY. PT SKIPPED LUNCH. DENIES CHEST PAIN OR PRESSURE, ALERT AND DISORIENTED ON WAKING. INTERMITTENT CONFUSION. SBA TO BATHROOM DUE TO INCREASED O2 NEED. ABLE TO MAKE NEEDS KNOWN. CALL LIGHT IN REACH.
[2023-07-01 19:43] VITALS: BP 87/65
[2023-07-02 02:21] VITALS: BP 97/67
--- NOTE | 2023-07-02 05:09 | NUR ---
RELAY RECORD CLERK SUMMARY PT A&O X 3, UNAWARE OF DATE. PT PLEASANT WITH MUMBLED SPEECH. PT UP INDEPENDENTLY IN ROOM WITH SBA. PT BS 183 AT HS CHECK. BP REMAINS LOW, PT DENIES SX SUCH DIZZINESS. PT SON CURT CALLED FOR AN UPDATE ON HIS DAD AND WILL CALL HIM IN THE AM. PT SOB WITH EXERTION, OXYGEN WORN AT 2L VIA NC THROUGH THE NIGHT. PT HAS SWOLLEN SCROTUM WHICH HE REPORTS BASELINE, SKIN RED IN GROIN AND ON SCROTUM, MICONAZOLE POWDER APPLIED. PT DENIES PAIN AND SLEPT THROUGH THE NIGHT WITH NO ACUTE CHANGES THIS SHIFT. 07/02/23 EBENEZER AGUILA RN
[2023-07-02 07:15] VITALS: BP 106/78
--- NOTE | 2023-07-02 10:01 | NUR ---
CALLED DR YAMILETH RINCON B/P. GIVE METOPROLOL, HOLD BALANCE BP MEDS.
[2023-07-02 15:05] VITALS: BP 101/75
--- NOTE | 2023-07-02 18:27 | NUR ---
PT PLEASANT TODAY, NO C/O PIAN TODAY. DID HAVE FAMILY IN TO VISIT TODAY. VSS. PENDING D/C TO FACILITY. POSSIBLE TO [place] PER FAMILY. CONTINUES ON 2L O2. NO NEW CONCERNS NOTED TODAY.. BED IN LOW POSITION, CALL LITE IN REACH, CALLS APPROP
[2023-07-02 19:54] VITALS: BP 89/62
[2023-07-03 03:09] VITALS: BP 109/85
--- NOTE | 2023-07-03 05:24 | NUR ---
DRAWER IN DOBBY LOOM SUMMARY PT A&O X 3, PLEASANT . HE WAS UP AMBULATING IN HIS ROOM, STEADY ON HIS FEET. PT CONTINUED 2L O2 VIA NC. HE WAS NOTED TO BE SOB WHEN MOVING AROUND IN BED. PT DENIES PAIN OR DISCOMFORT. HE DID EAT 2 JELLO'S AND 1 PUDDING AFTER NOT EATING HIS DINNER. HS CBG WAS 172. BP'S REMAIN LOW, PT ASYMPOMATIC. NO ACUTE CHANGES THIS SHIFT. 07/03/23 EBENEZER AGUILA RN
--- NOTE | 2023-07-03 06:54 | NUR ---
PAIN PT REPORTING "PAIN EVERYWHERE." HE WOULD NOT EXPLAIN FURTHER WHEN I QUESTIONED HIM ABOUT WHERE HE FELT PAIN. I ASKED HIM IF HE WOUDL LIEK ME TO CALL [facility] FOR APAP OR IBUPROFEN AND HE DECLINED. I DID OFFER HIM A HEATING PAD AND HE ACCEPTED. 07/03/23 EBENEZER AGUILA RN
[2023-07-03 07:33] VITALS: BP 90/59
[2023-07-03] MEDS ORDERED: Insulin Human Lispro 100 Units/ML 3ML Syringe SC SCH (07:45)
[2023-07-03 08:29] VITALS: BP 92/64
--- NOTE | 2023-07-03 09:00 | NUR ---
PT A/O X3, PLEASANT COOP.. DENIES PAIN AT THIS TIME. H/R REG, NO MIRMIR NOTED. NO PACER OR TELE. VSS SOFT, RECHECK CONFIRMS. SPOKE TO DR WALTER, OKAY HOLD ALDACTONE, WILL ORDER MIDODRINE TO KEEP UP. NO EDEMA NOTED. LUNGS CLEAR, DIM LOW LEFT. RESP EASY, UNLABORED. ON 2L O2. BT X4 LALST BM NOT KNOWN BY PT. VOIDS BATHROOM. INDEPENDANT TO BATHROOM. BED IN LOW POSITION, CALL LITE IN REACH, CALLS APPROP
[2023-07-03] MEDS ORDERED: Midodrine 5 MG Tab PO ONE (10:00)
[2023-07-03] MEDS ORDERED: Midodrine 5 MG Tab PO PRN (10:00)
--- NOTE | 2023-07-03 11:57 | NUR ---
SPOKE TO DR WALTER. RE BP. HOLD ALDACTONE, WILL ORDER MIDODRINE, GIVE BALANCE OF MEDS.
[2023-07-03 16:37] VITALS: BP 86/62
--- NOTE | 2023-07-03 16:46 | NUR ---
called dr ed reese bp. bryn midodrine, 2.5 mg tid po prn sbp < 90
[2023-07-03] MEDS ORDERED: Midodrine 2.5 MG Tab PO PRN (16:50)
--- NOTE | 2023-07-03 17:33 | NUR ---
PT PLEASANT TODAY. NO C/O PAIN. LOW BP AGAIN THIS AFT. DISCUSSED WITH DR WALTER. ORDERS FOR MIDODRINE. PT ASYMPTOMATIC. PENDING PLACEMENT. NO OTHER NEW CONCERNS NOTED. BED IN LOW POSITION, CALL LITE IN REACH, CALLS APROP
[2023-07-03 19:37] VITALS: BP 98/66
[2023-07-04 05:16] VITALS: BP 108/73
--- NOTE | 2023-07-04 05:40 | NUR ---
LIBRARY ATTENDANT SUMMARY PT A&O X 3, PLEASANT . PT HAD ONE PERIOD OF CONFUSION AFTER WAKING WHERE HE SAID THE COMPUTER IN HIS ROOM KEPT GIVING HIM PROBLEMS. HE WAS UP AMBULATING IN HIS ROOM, STEADY ON HIS FEET. PT ON 1L O2 VIA NC. HE CONTINUED TO REMOVE O2 IN HIS SLEEP TONIGHT. BIOX REMAINED ABOVE 90% WHEN ON RA. HE WAS NOTED TO BE SOB WHEN MOVING AROUND IN BED. PT DENIES PAIN OR DISCOMFORT. PT CONTINUES TO HAVE A POOR APPETITE, HE WAS OFFERED SNACK ALTERNATIVES WHICH HE DID NOT WANT TONIGHT. HS CBG WAS 201, NO S/S COVERGAE NEEDED. BP'S REMAIN LOW, SBP REMAINED ABOVE 90 THIS SHIFT, PT ASYMPOMATIC. PT SLEPT MOST OF THE NIGHT. NO ACUTE CHANGES THIS SHIFT. 07/04/23 EBENEZER AGUILA RN
[2023-07-04 07:39] VITALS: BP 95/64
[2023-07-04] MEDS ORDERED: Spironolactone 12.5 MG TAB PO SCH ×2 (09:00)
[2023-07-04] MEDS ORDERED: Furosemide 20 MG Tab PO SCH (09:00)
[2023-07-04 16:31] VITALS: BP 91/58
[2023-07-04 16:32] VITALS: BP 82/60
[2023-07-04 18:15] VITALS: BP 110/88
--- NOTE | 2023-07-04 18:23 | NUR ---
PT QUITE PLEASANT COOP TODAY. STILL PENDING PLACEMENT. DID MAKE ORDERS FOR NO IV ACCESS. VSS LOW THHIS KRAL. MIDODRINE GIVEN, RECHECK WAS GOOD. PT CONTINUES TO BE ASYMPTOMATIC. BED IN LOW POSITION, CALL LITE IN REACH, CALLS APPROP
[2023-07-04 20:14] VITALS: BP 100/73
--- NOTE | 2023-07-05 06:20 | NUR ---
DIE TESTER SUMMARY PT A&O X 3, PLEASANT . PT ON 1L O2 VIA NC. PT DENIES PAIN OR DISCOMFORT. PT CONTINUES TO HAVE A POOR APPETITE, HE WAS OFFERED SNACK ALTERNATIVES, HE DID EAT 2 JELLO'S AND HIS GLUCERNA FROM HIS DINNER TRAY. HS CBG WAS 147, NO S/S COVERAGE NEEDED. BP'S REMAIN LOW, SBP REMAINED ABOVE 90 THIS SHIFT, PT ASYMPOMATIC. PT HAD 2 BM'S AND NEEDED ASSISTANCE WITH CLEAN UP. SCROTAL AREA REMAINS RED, MICONAZOLE APPLIED. PT SLEPT MOST OF THE NIGHT. NO ACUTE CHANGES THIS SHIFT. 07/05/23 EBENEZER AGUILA RN
[2023-07-05 07:19] VITALS: BP 99/74
[2023-07-05 15:34] VITALS: BP 101/75
--- NOTE | 2023-07-05 19:03 | NUR ---
DAY SHIFT SUMMARY: NO ACUTE CHANGES TO REPORT THIS SHIFT. PT A&O X3; CALM AND COOPERATIVE WITH CARE. NO C/O PAIN OR DISCOMFORT THIS SHIFT. POC GLUCOSE CHECKS COMPLETED AC & HS; NO COVERAGE NEEDED THIS SHIFT. PT REMAINS ON O2 AT 1LNICOTINE 21MG TOP IN PLACE TO L SHOULDER. MICONAZOLE APPLIED TO REDDENED GROIN AND COCCYX. AWAITING HOSPICE COORDINATION FOR SAFE DISCHARGE. WCTM.
[2023-07-05 19:36] VITALS: BP 92/62
[2023-07-05 19:38] VITALS: BP 85/65
[2023-07-05 20:00] VITALS: BP 90/46; BP 92/50
--- NOTE | 2023-07-05 23:08 | NUR ---
Patient has now had two nose bleeds, nurse called RT and humidifier was ordered. Patient is slightly hypotensive, Nurse notified and cont. to monitor through out shift. Observed patient more fatigued and being more passive with ADL's tonight.
[2023-07-06 05:02] VITALS: BP 93/68
[2023-07-06] MEDS ORDERED: FentaNYL Citrate 50 MCG/ML 2 ML Injection IV PRN (05:20)
[2023-07-06] MEDS ORDERED: TraMADol HCl 50 MG Tab PO PRN (05:40)
--- NOTE | 2023-07-06 06:16 | NUR ---
SHIFT SUMMARY NOC PT A/O X 3. PLEASANT AND COOPERATIVE WITH CARE. BP SOFT. PT ON O2 1L/NC SPO2 >92%. PT HAS BEEN GOING TO BATHROOM INDEPENDENTLY WITHOUT ASSISTANCE. HS CBG 192 CNI. PT HAS HAD A COUPLE NOSEBLEEDS, WHICH PT REPORTS IS NORMAL. PT IS AWAITING [facility] MEDICAID APPROVAL FOR HOSPICE PLACEMENT. PT IS CURRENTLY RESTING WITH BED IN LOWEST POSITION, AND CALL LIGHT WITHIN REACH.
[2023-07-06 07:21] VITALS: BP 103/77
[2023-07-06 15:59] VITALS: BP 98/77
--- NOTE | 2023-07-06 18:20 | NUR ---
CALLED DR JOHNSON- PER DR JOHNSON SHE SPOKE TO PALLIATIVE CARE RN AND ASKED THAT SHE SPEAK TO THE PT FAMILY ABOUT THE PT PLANS TO DC ON HOSPICE AND POSSIBLY SWITCHING TO COMFORT CARE AN INPATIENT. CALLED PALLIATIVE CARE RN BUT THEY ARE GONE FOR THE NIGHT. WILL CALL AND SPEAK TO THEM TOMORROW MORNING. TODAY THE PT HAS BEEN MORE GROGGY AND A LITTLE MORE IMPULSIVE THAN HE WAS PREVOUSLY PER THE BRAKE LINING CURER WHO CARED FOR HIM YESTERDAY. BP'S ARE SOFT SBP IN THE 90'S.
--- NOTE | 2023-07-06 18:35 | NUR ---
DAY SHIFT SUMMARY: PT A&O X1-2; IMPULSIVE; COOPERATIVE WITH CARE. UP TO BATHROOM WITH STAND-BY ASSIST. NO C/O PAIN THIS SHIFT. PT IS AWAITING [facility] MEDICAID APPROVAL FOR HOSPICE PLACEMENT. BED LOW & LOCKED; CALL LIGHT WITHIN REACH. TM.
[2023-07-06 20:00] VITALS: BP 103/71
--- NOTE | 2023-07-07 05:23 | NUR ---
SHIFT SUMMARY PT SOMNOLENT AND SLEEPY AT START OF SHIFT. A&OX3. NO ACUTE CHANGES. PT UP TO BATHROOM WITH SBA. DOES NOT USE CALL LIGHT AND IS IMPULISIVE. MAINTAINING O2 SATURATIONS >95% ON 2L/MIN. NO INSULIN COVERAGE NEEDED AT HS. VSS BUT BP REAMAINS SOFT. PT ABLE TO SLEEP MOST OF THE NIGHT. BED ALARM ON. BED IN LOWEST POSITION AND CALL LIGHT IN REACH.
[2023-07-07 06:10] VITALS: BP 97/70
[2023-07-07 07:31] VITALS: BP 80/61
[2023-07-07] MEDS ORDERED: Midodrine 2.5 MG Tab PO PRN (07:50)
[2023-07-07 08:18] VITALS: BP 95/73
[2023-07-07 10:05] LABS: BASOPHILS ABSOLUTE AUTO 0.04 K/mm3 (0.00-0.23); BASOPHILS PERCENT AUTO 1 % (0-2); EOSINOPHILS ABSOLUTE AUTO 0.04 K/mm3 (0.00-0.68); EOSINOPHILS PERCENT AUTO 1 % (0-6); Hematocrit 48.3 % (37.0-53.0); Hemoglobin 15.5 g/dL (13.5-17.5); IMMATURE GRAN ABSOLUTE AUTO 0.02 K/mm3 (0.00-0.10); IMMATURE GRAN PERCENT AUTO 0 % (0-1); LYMPHOCYTES ABSOLUTE AUTO 0.93 K/mm3 (0.84-5.20); LYMPHOCYTES PERCENT AUTO 16 % (21-46); MONOCYTES ABSOLUTE AUTO 0.46 K/mm3 (0.16-1.47); MONOCYTES PERCENT AUTO 8 % (4-13); Mean Corpuscular HGB 30.1 pg (26.0-34.0); Mean Corpuscular HGB Conc 32.1 g/dL (31.5-36.5); Mean Corpuscular Volume 94 fL (80-100); Mean Platelet Volume 11.9 fL (9.1-12.4); NEUTROPHILS ABSOLUTE AUTO 4.46 K/mm3 (1.96-9.15); NEUTROPHILS PERCENT AUTO 75 % (41-73); Platelet Count 168 K/mm3 (150-400); RDW Coefficient Variation 14.6 % (11.7-14.2); RDW Standard Deviation 50.2 fL (35.1-46.3); Red Blood Cell Count 5.15 M/mm3 (4.30-5.90); White Blood Cell Count 5.95 K/mm3 (4.00-11.30)
[2023-07-07 10:20] LABS: Albumin, Blood 2.8 g/dL (3.4-5.0); Anion Gap 9 mmol/L (3-11); Blood Urea Nitrogen 20 mg/dL (8-24); Bun/Creatinine Ratio 24.9 (12.0-20.0); CO2, Blood 28 mmol/L (21-32); Calcium, Blood 8.8 mg/dL (8.5-10.1); Chloride, Blood 108 mmol/L (98-108); Glomerular Filtration Rate 89 (60-); Glucose, Blood 174 mg/dL (70-99); Magnesium, Blood 1.9 mg/dL (1.6-2.4); Phosphorus, Blood 3.1 mg/dL (2.5-4.9); Potassium, Blood 3.5 mmol/L (3.5-5.5); Sodium, Blood 141 mmol/L (136-145)
--- NOTE | 2023-07-07 12:48 | NUR ---
Spoke at length to pt's son Mayito this morning. He is agreeable to change pt's status to comfort care given his current condition. He also plans to speak with other family members over the next day or 2 to update them, and they are aware they are welcome to ask questions of the pt's hospital team. Dr. Waddell aware, and is placing comfort care orders at this time.
[2023-07-07] MEDS ORDERED: Promethazine HCl 25 MG Tab PO PRN (12:50)
[2023-07-07] MEDS ORDERED: Atropine Sulfate 1% Opth Soln 2ML BTL SL PRN (12:50)
[2023-07-07] MEDS ORDERED: LORazepam 1 MG Tab PO PRN (12:50)
[2023-07-07] MEDS ORDERED: Morphine Sulfate 20 MG/1ML 1 ML Oral Syringe SL PRN (12:55)
[2023-07-07] MEDS ORDERED: Scopolamine Hydrobromide Patch TOP PRN (12:55)
[2023-07-07 15:01] VITALS: BP 95/79
[2023-07-07 15:50] LABS: Source, Urine Clean Catch
[2023-07-07 16:06] LABS: Appearance, Urine Clear (Clear); Bilirubin, Urine Neg (Neg); Blood, Urine Neg (Neg); Color, Urine Yellow (P-Yellow); Glucose Qualitative, Urine 3+ (Neg); Ketones, Urine 1+ (Neg); Leukocyte Esterase, Urine 2+ (Neg); Nitrite, Urine Neg (Neg); Protein, Urine 1+ (Neg); Specific Gravity, Urine 1.025 (1.003-1.022); Urobilinogen, Urine 2+ (Normal)
[2023-07-07 16:27] LABS: Bacteria Many /hpf; Mucus Mod (0-Heavy); Red Blood Cells, Urine 0-2 /hpf (0-2); Squamous Epithelial Cells Few /hpf (Few)
[2023-07-07 16:28] LABS: Renal Epithelial Rare /hpf (0-Rare)
[2023-07-07 16:29] LABS: Yeast/Fungi Urine Few /hpf
[2023-07-07 16:30] LABS: Hyaline Casts 0-2 /lpf (0-2)
[2023-07-07 19:20] VITALS: BP 93/67
--- NOTE | 2023-07-07 19:25 | NUR ---
SHIFT SUMMARY- PT WAS SWITCHED TO COMFORT CARE TODAY. HE HAS HAD NO ACUTE EVENTS SINCE THEN. PT HAS BEEN UP TO THE BATHROOM OFF AND ON THROUGH THE SHIFT. BED ALARM ON FOR SAFETY THE PT DOES NOT CALL. BEDSIDE REPORT COMPLETED WITH NIGHT RN. PT SLEEPING SOUNDLY BUT DID VERBALLY RESPOND TO DIRECT QUESTIONS. NO S&S OF DISTRESS NOTED AT THE TIME OF REPORT.
--- NOTE | 2023-07-08 05:58 | NUR ---
SHIFT SUMMARY NO ACUTE CHANGES OVERNIGHT. NO C/O PAIN. PT REMAINS ON 2L OF OXYGEN. COOPERATIVE OF CARE BUT IMPULSIVE. BED ALARM ON FOR SAFETY. BED IN LOWEST POSITION AND CALL LIGHT IN REACH.
--- NOTE | 2023-07-08 18:28 | NUR ---
PATIENT A/OX4, HOWEVER FORGETFUL OF HIS PHYSICAL LIMITATIONS AND HAS ATTEMPTED TO GET OUT OF BED INDEPENDENTLY THIS SHIFT. PATIENT WITH 2L OXYGEN VIA NC. WAS PROVIDED COMFORT FOODS THROUGHOUT THE DAY. PATIENT WITH RASH TO GROIN, AREA CLEANED AND MEDICATED POWDER APPLIED PER APR. PATIENT'S SON ARRIVED AT 1630 TO VISIT, BUT PATIENT WAS SLEEPING SO HE DECIDED TO RETURN LATER IN THE DAY AT 1800. PATIENT HAS DENIED PAIN THIS SHIFT AND HAS RECIEVED A SHOWER. BED ALARM ON. NO CONCERNS AT THIS TIME.
--- NOTE | 2023-07-08 21:46 | NUR ---
PRIMARY RN ON BREAK: THIS RN ADMINISTERED HS MEDICATIONS.
--- NOTE | 2023-07-09 04:52 | NUR ---
SHIFT SUMMARY: ON COMFORT CARE. DENIED PAIN. REQUESTING JELLO OFTEN. GETTING UP TO BR WITH SBA, BED ALARM ON, IS IMPULSIVE AND MOVES QUICKLY. SLEPT MOST OF THE NIGHT.
--- NOTE | 2023-07-09 15:51 | NUR ---
SHIFT SUMMARY Pt remains A&Ox4 this shift. Up to bathroom with generalized weakness noted. SBA. Pt is impulsive and will get up by self. Bed alarm on. Denies pain. Resting comfortably this shift. Slept thru family visit at lunch. All needs met at this time. Comfort care measures in place. Will continue to monitor/car for this shift.
--- NOTE | 2023-07-10 04:58 | NUR ---
EQUAL EMPLOYMENT OPPORTUNITY OFFICER SUMMARY: A&Ox3-4. PLEASANT AND COOPERATIVE WITH CARE. CALLS APPROPRIATELY AND ABLE TO ADVOCATE NEEDS EFFECTIVELY. SLEPT THROUGH NIGHT AFTER TAKING HS PILLS. INDEPENDENT TO BATHROOM. REQUESTED ROOM DOOR BE CLOSED AND LEFT UNDISTURBED MOST OF NIGHT. NO C / O PAIN OR DISCOMFORT. PLAN TO FIND PLACEMENT TO DC WITH HOSPICE CARE. REPORT TO ONCOMING RN.
--- NOTE | 2023-07-10 16:29 | NUR ---
SHIFT SUMMARY Pt remains A&Ox3 this shift. Denies pain. Up to bathroom with SBA. Decreased appetite. Able to verbalize needs. Pain and safety maintained. No needs id or verbalized at this time. Will continue to monitor.
--- NOTE | 2023-07-11 04:38 | NUR ---
SHIFT SUMMARY: DON AROUSES EASILY AND RESPONDS APPROPRIATELY. HE IS INDEPENDENT TO THE BATHROOM, BUT DOES REQUIRE ASSISTANCE FOR ATTENDS CHANGES. HE IS TOLERATING PO INTAKE WELL AND IS ABLE TO MAKE HIS NEEDS KNOWN. HE HAS NOT USED THE CALL LIGHT THIS SHIFT. HE IS LYING IN BED WITH EYES CLOSED AND EVEN, UNLABORED RESPIRATIONS. CALL LIGHT IN REACH. WILL GIVE REPORT TO DAY SHIFT RN.
--- NOTE | 2023-07-11 17:58 | NUR ---
SUMMARY- PT A/O X3-4, INDEPENDANT IN THE ROOM. PT CALM AND COOPERATIVE, VERBAL. PT'S LUNGS CTA. ROOM AIR, APPLIES 02 PRN. PT DENIES ANY PAIN. HAD 2 STOOLS TODAY, ONE INCONT. TOLERATING FOOD AND FLUIDS. AWAITING ASSISTED MEDICARE. PT'S FAMILY HERE TO VISIT AT 1700.
--- NOTE | 2023-07-12 06:08 | NUR ---
SHIFT SUMMARY: Pt is admitted for acute hypoxic respiratory failure and is a DNR. is alert and able to make needs known. Is on comfort care. ADLs have been independent. Denies pain or discomfort when asked.
--- NOTE | 2023-07-12 18:11 | NUR ---
SUMMARY- PT A/O X3, INDEPENDANT IN THE ROOM. CONTINENT OF BLADDER. TOLERATING FOOD AND FLUID. AWAITING MEDICARE OUTPATIENT ADMITTING CLERK COVERAGE APPROVAL. UNEVENTFUL DAY
--- NOTE | 2023-07-13 06:38 | NUR ---
SHIFT SUMMARY: PATIENT ORIENTED X4, COOPERATIVE. LEFT LUNG MORE DIMINISHED THAN RIGHT. COMFORT CARE ASSESSMENTS DONE Q4H. SLEPT THROUGH NIGHT. WAITING FOR HOSPICE PLACEMENT.
--- NOTE | 2023-07-13 16:52 | NUR ---
SHIFT SUMMARY PATIENT ALERT AND INTERACTIVE. PATIENT AMBULATING TO BATHROOM NEEDED. PATIENT EASILY SOB WITH ANY EXCERTION. FAMILY IN TO SEE PATIENT. DR. NOYOLA APPROVED FOR PATIENT TO GO OUTSIDE. PATIENT TAKEN OUTSIDE VIA WHEELCHAIR WITH FAMILY. PATIENT EXHAUSTED AFTER OUTING BUT STATES IT WAS NICE. PATIENT CONTINUES TO BE ON COMFORT CARE, CASE MANAGEMENT CONTINUE TO WORK ON PLACEMENT.
[2023-07-13 20:55] VITALS: BP 99/78
--- NOTE | 2023-07-14 06:15 | NUR ---
SHIFT SUMMARY: PATIENT FULLY ORIENTED, GROGGY AND SLOW ON ANSWERS. COMFORT CARE. PRN OXYGEN. SLEPT WELL THROUGH NIGHT, NO EVENTS.
[2023-07-14 07:03] VITALS: BP 109/82
--- NOTE | 2023-07-14 18:12 | NUR ---
SHIFT SUMMARY PATIENT ALERT AND INTERACTIVE. PATIENT INDEPENDENT TO THE BATHROOM AND BACK. PATIENT USING OXYGEN NEEDED. NO FAMILY PRESENT TODAY. CONTINUE TO WAIT FOR [facility] MEDICAID TO BE APPROVED FOR PLACEMENT.
--- NOTE | 2023-07-15 06:34 | NUR ---
SHIFT SUMMARY: PATIENT FULLY ORIENTED, STRUGGLED A LITTLE TO NAME TOWN. COMFORT CARE MEASURES. WAITING FOR PLACEMENT. SLEPT WELL THROUGH NIGHT. PRN OXYGEN.
--- NOTE | 2023-07-15 11:55 | NUR ---
THIS RN PROVIDING BREAK COVERAGE FOR PRIMARY RN, RYAN: ASHLEY WITH [facility] TH[facility]OUGH [facility] HERE FOR MEET AND GREET. IF HE AGREES, HE'LL NEED A FORMAL EVAL. HE WILL DECIDE AND LET JAYLA KNOW.
--- NOTE | 2023-07-15 14:51 | NUR ---
THIS RN PROVIDING BREAK COVERAGE FOR PRIMARY NURSE TODAY. THIS PATIENT GOING OUTSIDE WITH FAMILY "FOR FRESH AIR". OK PER PRIMARY RN, RYAN Lynn
--- NOTE | 2023-07-15 17:07 | NUR ---
SHIFT SUMMARY PATIENT ALERT AND INTERACTIVE WHEN AWAKE. PATIENT AMBULATING TO THE BATHROOM INDEPENDENTLY. POOR APPETITE. FAMILY HERE TO SEE PATIENT AND TOOK PATIENT OUT FOR FRESH AIR. OUTING APPROVED BY PROVIDER. PATIENT ASSESSED BY [facility] FOR PLACEMENT.
--- NOTE | 2023-07-16 03:28 | NUR ---
SHIFT SUMMARY: PT COMFORT CARE, IND IN ROOM, ABLE TO MAKE NEEDS KNOWN. SWALLOWS PILLS WHOLE W/ THINS. BATHROOM UTILIZED FOR ELIMINATION. PT PLEASANT, COOPERATIVE, CALL LIGHT APPROPRIATE. BED LOCKED AND LOW W/ FALL PRECAUTION SOCKS IN PLACE TO ENSURE SAFETY. PT ROOM CLOSE TO NURSES STATION ALLOWING FOR FREQUENT VISUALIZATION OF PT.
--- NOTE | 2023-07-16 18:33 | NUR ---
REPORT RECEIVED VERIFIED PT A/O X3 VERY PLEASENT BUT DOES HAVE SOME MEMORY LOSS, PT COMFORT CARE SWALLOW INTACT [facility] AND CAN MAKE NEEDS KNOWN. FAMILY PICKED PT UP AND TOOK FOR A RIDE IN THE WHEEL CHAIR. WHEN PT RETURNED PT HAD SOILED PAINTS. PANTS WHERE WASHED AND HUNG TO DRY AND PT WAS CLEANED AND NEW BRIEF PLACED. PT EATING DINNER NO CHANGE IN CONDITION.
--- NOTE | 2023-07-17 04:57 | NUR ---
SHIFT SUMMARY: ON COMFORT CARE. DENIED PAIN. A&O X 1 WHEN AWAKE. GETTING UP TO BR INDEPENDENTLY. RAY, DECLINED USE OF O2. SLEPT MOST OF THE NIGHT.
[2023-07-17] MEDS ORDERED: Ipratropium/Albuterol SulF 2.5-0.5MG/3 ML Amp INH SCH (08:55)
--- NOTE | 2023-07-17 10:52 | NUR ---
REPORT RECEIVED VERIFIED PT A/OX3 QUIETLY LAYING IN BED, NO CHANGE IN CONDITION. MD IN TO SEE PT, PLAN IS WAITING FOR PLACMENT.
[2023-07-17] MEDS ORDERED: Ipratropium/Albuterol SulF 2.5-0.5MG/3 ML Amp INH PRN (14:26)
--- NOTE | 2023-07-18 05:08 | NUR ---
SHIFT SUMMARY PT A&OX4 AND ANSWERS QUESTIONS APPROPRIATELY. PT ON COMFORT CARE AND IS AWAITING PLACEMENT. PT RECEIVED HS MEDICATIONS AND TOLERATED INTERVENTION WELL. PT SPENT MOST OF THE NIGHT LAYING IN BED WITH EYES CLOSED AND RESPIRATIONS EVEN AND UNLABORED. NO COMPLAINTS OF CP/PRESSURE OR SOB. NO ACUTE EVENTS AT THIS TIME. PT CONTINENT TO THE BATHROOM. PT LEFT IN A POSITION OF SAFETY WITH PROPER FALL PRECAUTIONS IN PLACE AND CALL LIGHT IN REACH.
--- NOTE | 2023-07-18 09:57 | NUR ---
REVIEVED PT REPORT FROM JEFFREY MEYER. PT TRANSFERED AT 0945 VIA BED TO ROOM 333. NO DISTRESS NOTED, PT AOX4. CALL LIGHT IS WITHIN REACH WILL CONTINUE TO MONITOR.
--- NOTE | 2023-07-18 16:45 | NUR ---
PT HAS BEEN DOING WELL ALL DAY. PT DENIES ANY PAIN AND HAS BEEN RESTING IN BED MOST OF THE DAY. PT HAS BEEN INDEPENDENT IN ROOM AND CALLS APPROPRIATELY. NO DISTRESS NOTED WILL CONTINUE TO MONITOR.
--- NOTE | 2023-07-19 04:32 | NUR ---
SUMMARY: PT A/OX3-4, IS INDEPENDENT IN ROOM AND AWARE OF LIMITATIONS. HE'S PLEASANT AND COOPERATIVE W/CARE AND CALLS APPROPRIATELY TO SPECIFY NEEDS. PT IS CONTINENT AND USES TOILET AD SAE. RX POWDER APPLIED TO RASHY GROIN. HE SLEPT MAJORITY OF NOCTE AND DENIED PAIN/COMPLAINTS. COMFORT CARE IN PROGRESS. NO ACUTE CHANGES. WCTM AND REPORT TO DAY RN.
--- NOTE | 2023-07-19 19:39 | NUR ---
DAY SHIFT SUMMARY: A&Ox4. PLEASANT AND COOPERATIVE WITH CARE. CALLS APPROPRIATELY AND ABLE TO ADVOCATE NEEDS EFFECTIVELY. NO ACUTE CONCERNS THIS SHIFT. NO C/O PAIN OR DISCOMFORT. AWAITING PLACEMENT. REPORT TO ONCOMING RN.
--- NOTE | 2023-07-20 06:09 | NUR ---
SUMMARY: PT A/OX3-4, IS INDEPENDENT IN ROOM AND ABLE TO APPROPRIATELY MAKE NEEDS KNOWN. HE'S PLEASANT AND COOPERATIVE W/CARE W/COMFORT MEASURES IN PROGRESS. PT UP AD SAE IN ROOM, TOILETED SELF AND DENIED NEEDING STOOL SOFTENERS THIS SHIFT. HE SLEPT INTERMITTENTLY T/O NOCTE, HAD SNACKS PER REQUEST AND DENIED PAIN/COMPLAINTS. NO ACUTE CHANGES. WCTM/REPORT TO DAY RN.
--- NOTE | 2023-07-20 15:48 | NUR ---
SHIFT SUMMARY PT UP IN ROOM INDEPENDENTLY. VERY POOR APPETITE TODAY. PT SLEPT THROUGH LUNCH AND WOULD NOT WAKE UP FOR AN INTERVIEW WITH BEULAH FROM [facility]. PTS NEXT OF KIN CONTACT GIVEN TO BEULAH FOR FURTHER INTERVIEW NEEDS. AWAITING PLACEMENT AT THIS TIME. PT NOW AWAKE AND AMBULATING IN ROOM. USING BATHROOM INDEPENDENTLY. DENIES PAIN T/O SHIFT. BREATHING EASY & UNLABORED T/O SHIFT. CALL LIGHT IN REACH. DENIES OTHER NEEDS AT THIS TIME.
--- NOTE | 2023-07-21 04:12 | NUR ---
SHIFT SUMMARY- COMFORT CARE PT. IS ON COMFORT CARE MEASURES, ORIENTED X3, ALERT. PT.AMBULATES INDEPENDENTLY IN THE HOSPITAL ROOM AND USES RESTROOM. PT. HAS BEEN STABLE AND APPEARS COMFORTABLE W/O DISCOMFORT OR PAIN T/O THIS SHIFT. BED AT THE LOWEST POSITION, CALL LIGHT IN REACH. NO ACUTE EVENTS ON THIS SHIFT. WILL HANDOFF TO THE INCOMING SHIFT NURSE.
--- NOTE | 2023-07-21 15:33 | NUR ---
SHIFT SUMMARY PT RESTING QUIETLY AT START OF SHIFT. PT ON COMFORT CARE, WAITING TO D/C TO [facility] ON HOSPICE. PT LATER WOKE FOR BREAKFAST. UP INDEPENDENTLY TO BTHRM. SITTING TO EOB FOR MEALS. PT REQUESTED ICE CREAM AND JELLO AFTER LUNCH, SITTING UP TO EOB TO EAT. DENIED FURTHER NEEDS. NO C/O. CALL LT IN REACH.
--- NOTE | 2023-07-22 02:55 | NUR ---
SHIFT SUMMARY PT.IS ON COMFORT CARE, A&O X2-3, COOP WITH CARE. PT.INDEPENDENTLY AMBULATING IN THE ROOM. PT HAS BEEN RESTING COMFORTABLY MOST OF THE NIGHT. PT.WOKE UP ONCE AND REQUESTED TO CALL SOMEONE, DID NOT HAVE THE PHONE NUMBER AVAILABLE. SOON AFTER PT. BACK IN BED, NO C/O DISCOMFORT DURING THIS SHIFT. BED AT THE LOWEST POSITION, CALL LIGHT IN REACH. WILL HANDOFF TO THE INCOMING SHIFT NURSE.
--- NOTE | 2023-07-22 18:41 | NUR ---
SHIFT SUMMARY NO ACTUE EVENTS OR COMPLAINTS DURING SHIFT. PATIENT UP AD SAE TO BATHROOM THROUGHOUT DAY. HE IS ABLE TO MAKE HIS NEEDS KNOWN.
--- NOTE | 2023-07-23 04:58 | NUR ---
SHIFT SUMMARY NOC PT A/O TO SELF. PLEASANTLY CONFUSED AND COOPERATIVE WITH CARE. PT ON COMFORT CARE MEASURES. PT SLEPT FOR ENTIRETY OF SHIFT EXCEPT WHEN VANILLA ICE CREAM AND JELLO REQUESTED FOR NIGHT SNACK. PT IS WAITING ON [facility] MEDICAID APPROVAL FOR PLACEMENT AT [facility]. PT CURRENTLY RESTING WITH BED IN LOWEST POSITION, AND CALL LIGHT WITHIN REACH.
--- NOTE | 2023-07-23 18:04 | NUR ---
SHIFT SUMMARY PATIENT CONTINUES TO BE ON COMFORT CARE AND CONTINUES TO BE WAITING FOR PLACEMENT. PATIENT DENIES ANY PAIN. PREFERING TO EAT ICE CREAM AND JELLO. NO FAMILY SEEN TODAY. PATIENT INDEPENDENT IN THE ROOM. PATIENT FORGETFUL AND CONFUSED AT TIMES.
--- NOTE | 2023-07-24 05:11 | NUR ---
SHIFT SUMMARY NOC PT A/O TO SELF AND PLACE. PLEASANTLY CONFUSED AND COOPERATIVE WITH CARE. PT ON COMFORT CARE MEASURE, NO C/O OF ANY PAIN OR DISCOMFORT. PT TOOK BEDTIME RX WITHOUT ISSUE. PT SLEPT FOR MAJORITY OF SHIFT, ONLY REQUESTING SNACKS UPON WAKING, THEN FALLING BACK ASLEEP. PT STILL AWAITING [facility] MEDICAID APPROVAL FOR TRANSFER TO [facility]. PT CURRENTLY RESTING WITH BED IN LOWEST POSITION, AND CALL LIGHT WITHIN REACH.
--- NOTE | 2023-07-24 17:00 | NUR ---
SHIFT SUMMARY AND TRANSFER TO SCU PATIENT ALERT AND INTERACTIVE. PROGRESSIVELY RESTLESS AND CONFUSED. PATIENT STATING HE NEEDS TO GET TO FIND HIS CAR AND GET TO WORK THIS AFTERNOON. ATTEMPTED TO REDIRECT PATIENT AND PROVIDE DISTRACTING ACTIVITIES. HELPED PATIENT CALL HIS SON IN [place] TO HELP REDIRECT HIM. PATIENT CONTINUED TO TO WANT TO LOOK FOR CAR AND GO TO WORK. PATIENT WANDERING HALLS AND LOOKING IN ROOMS. PATIENT COOPERATIVE WHEN REDIRECTED TO HIS ROOM. PATIENT MEDICATED WITH ATIVAN WITH NO EFFECT. PATIENT TRANSFERED TO SCU FOR SAFETY BECAUSE OF WANDERING AND CONFUSION.
--- NOTE | 2023-07-24 18:28 | NUR ---
1800 TRANSFER FROM ROOM 333 TO 353 FOR WANDERING/AGITATION. Received pt awake and alert x3, forgetful. Ambulating to new room independently. Unsteady gait noted at times. Resp even nonlabored on RA. Oriented to room and call light.
--- NOTE | 2023-07-24 21:20 | NUR ---
TOOK OVER FOR PRIMARY NURSE WHEN SHE TOOK HER BREAK. PT DENIES NEEDS AT THIS TIME.
--- NOTE | 2023-07-24 23:45 | NUR ---
ASSUMED CARE WHILE PRIMARY NURSE TOOK BREAK. PT DENIES NEEDS AT THIS TIME.
--- NOTE | 2023-07-25 03:00 | NUR ---
ASSUMED CARE OF PT WHEN PRIMARY RN WENT TO BREAK. PT DENIES NEEDS AT THIS TIME.
--- NOTE | 2023-07-25 18:40 | NUR ---
PT PLEASANT COOP ALERT TO SELF AND FAMILY. ON COMFORT CARE. LUNGS SOME DIM BASES, ON R.A. AMBULATORY IN ROOM. FAMILY IN TO SEE TODAY. NO NEW CONCERNS NOTED. BED IN LOW POSITION, CALL LITE IN REACH, CALLS APPROP
--- NOTE | 2023-07-26 06:31 | NUR ---
NOC SHIFT SUMMARY PT RESTED WELL ALL NIGHT. NO COMPLAINTS. AWAITING PLACEMENT. COMFORT CARE.
--- NOTE | 2023-07-26 18:38 | NUR ---
PT PLEASANT COOP TODAY, CONTINUES ON COMFORT CARE. FAMILY IN TO VISIT TODAY AND TOOK OUT TO SIT IN SUNSHINE FOR FEW MINUTES. PENDING PLACEMENT. NO NEW CONCERNS NOTED. BED IN LOW POSITIOIN, CALL LITE IN REACH, CALLS APPROP
--- NOTE | 2023-07-27 04:08 | NUR ---
SHIFT SUMMARY PT. CONTINUES IN COMFORT CARE, NO ACUTE DISTRESS NOTED/REPORTED DURING THIS SHIFT. PT. RECEIVED A PHONECALL FROM HIS SON AT . PT. IS A&O X2-3, ABLE TO MAKE HIS NEEDS KNOWN, AND COOP WITH CARE. PT. HAS GOOD APPETITE, AMBULATES INDEPENDENTLY IN THE HOSPITAL ROOM.WILL HAND OFF TO THE INCOMING SHIFT NURSE, BED AT THE LOWEST POSITION, CALL LIGHT IN REACH.
--- NOTE | 2023-07-27 18:39 | NUR ---
SHIFT SUMMARY PT A&OX2-3, COOPERATIVE, AMB IND IN ROOM, VOIDING, TOLERATING PO, AND DENIED PAIN. PT APPEARED TO REST COMFORTABLY T/O SHIFT. NO CHANGES TO REPORT. CALL LIGHT WITHIN REACH AND PT ABLE TO MAKE NEEDS KNOWN.
--- NOTE | 2023-07-28 04:41 | NUR ---
SHIFT SUMMARY PT CONTINUES ON COMFORT CARE MEASURES. PT IS A&O X3, ABLE TO MAKE HIS NEEDS KNOWN, COOP WITH CARE. NO ACUTE EVENTS OR DISTRESS NOTED/REPORTED DURING THIS SHIFT. BED AT THE LOWEST POSITION, CALL LIGHT IN REACH. WILL HANDOFF TO THE INCOMING SHIFT NURSE.
--- NOTE | 2023-07-28 18:22 | NUR ---
SHIFT SUMMARY PT IS ON COMFORT CARE. PT DENIED PAIN AND APPEARED TO REST COMFORTABLY T/O SHIFT. NO CHANGES TO REPORT. CALL LIGHT WITHIN REACH AND PT ABLE TO MAKE NEEDS KNOWN.
--- NOTE | 2023-07-29 05:08 | NUR ---
SHIFT SUMMARY PT. CONTINUES ON COMFORT CARE MEASURES. PT DENIES PAIN AND DISCOMFORT DURING THIS SHIFT. PT. IS INDEPENDENT, COOP WITH CARE, ABLE TO MAKE HIS NEEDS KNOWN. NO ACUTE EVENTS OR DISTRESS NOTED/REPORTED DURING THIS SHIFT. BED AT THE LOWEST POSITION, CALL LIGHT IN REACH. WILL HANDOFF TO THE INCOMING SHIFT NURSE.
--- NOTE | 2023-07-29 17:21 | NUR ---
SHIFT SUMMARY PATIENT PLEASANT AND COOPERATIVE WITH CARE. HE DENIES ANY PAIN ISSUES, REQUESTS SNACKS THROUGHOUT SHIFT, SLEEPS INTERMITTENTLY BUT EASILY WOKE WITH VERBAL STIMULATION. FAMILY CURRENTLY PRESENT AND TAKING PATIENT IN WHEELCHAIR THROUGH UNIT. HE IS UP AD SAE IN ROOM AND HALLWAY. WILL CONTINUE TO MONITOR.
--- NOTE | 2023-07-30 07:28 | NUR ---
SHIFT SUMMARY PATIENT SLEPT MOST OF THE NIGHT. DID NOT REQUIRE ANY PRN MEDS. GIVEN LATE NIGHT DESSERTS
--- NOTE | 2023-07-30 18:41 | NUR ---
PT QUITE PLEASANT COOP- TODAY. FAMILY IN TO VISIT AND TOOK HIM OUT TO SIT IN SUN FOR A TIME THIS AFTERNOON. PT AMBULATES SELF TO BATHROOM. PENDING PLACEMENT. BED IN LOW POSITIION, CALL LITE IN REACH, CALLS APPROP
--- NOTE | 2023-07-31 04:42 | NUR ---
SHIFT SUMMARY PATIENT WAS UP DURING THE NIGHT JUST TO USE THE BR. DID NOT REQUEST ANY PRN MEDS TOINGHT, SLEPT WELL
--- NOTE | 2023-07-31 17:44 | NUR ---
PT PLEASNT TODAY. SLEEPS MUCH OF DAY. FAMILY IN TO VISIT TODAY. PT EATING LOTS SNACKS. NO NEW CONCERNS NOTED. PENDING PLACEMENT. BED IN LOW POSITION, CALL LITE IN REACH, CALLS APROP
--- NOTE | 2023-08-01 06:47 | NUR ---
SHIFT SUMMARY PT IS A&OX2, PT IS PLEASANT AND COOPERATIVE. PT IS ON COMFORT CARE. DENIES PAIN. ON A REGULAR DIET, LIKES TO SNACK. PT IS INDEPENDENT IN ROOM. TOOK A SHOWER TONIGHT. BED IN LOWEST POSITION, CALL LIGHT WITHIN REACH.
--- NOTE | 2023-08-01 18:32 | NUR ---
SHIFT SUMMARY PT MOVING ABOUT IN ROOM INDEPENDENTLY. DENIES PAIN OR DISCOMFORT FOR THE DAY. EATING AND VOIDING WITH NO PROBLEM. NO NEEDS NOTED.
--- NOTE | 2023-08-02 06:44 | NUR ---
SHIFT SUMMARY PT IS A&OX2, PT IS PLEASANT AND COOPERATIVE. PT IS ON COMFORT CARE. NO ACUTE CHANGES OR EVENTS. DENIES PAIN. ON A REGULAR DIET, HAD SOME SNACKS. PT IS INDEPENDENT IN ROOM. INCONTINENT OF URINE, CLOTHES CHANGED AND PULL-UP IN PLACE. NO BM THIS SHIFT. BED IN LOWEST POSITION, CALL LIGHT WITHIN REACH.
--- NOTE | 2023-08-02 16:27 | NUR ---
shift summary pt went outside with niece this afternoon. has eaten snacks between meals. shower taken. reports he has had a bm today. plans for priscila hale tomorrow.
--- NOTE | 2023-08-03 06:51 | NUR ---
SHIFT SUMMARY PT IS A&OX2, PT IS PLEASANT AND COOPERATIVE. PT IS ON COMFORT CARE. NO ACUTE CHANGES OR EVENTS THIS SHIFT. DENIES PAIN. ON A REGULAR DIET, HAD SOME SNACKS. PT IS INDEPENDENT IN ROOM. INCONTINENT OF URINE, PULL-UP IN PLACE. NO BM THIS SHIFT. BED IN LOWEST POSITION, CALL LIGHT WITHIN REACH.
--- NOTE | 2023-08-03 17:24 | NUR ---
SUMMARY- PT A/O X2- MIN SHORT TERM MEMORY. COOPERATIVE WITH CARE. INDEPENDANT IN ROOM TO BATHROOM. TOLERATING FOOD AND FLUIDS. DENIES PAIN, NO NOTED ANXIETY. USES CALL LIGHT TO MAKE NEEDS KNOWN. PLAN FOR PT TO DC TO [facility] TOMORROW, THRUSDAY 08/03. WILL REPORT TO NOC RN
--- NOTE | 2023-08-04 05:27 | NUR ---
SHIFT SUMMARY PT A&OX2 AND PLEASANT. FORGETFUL BUT CALLS APPROPRIATELY. IND IN ROOM. NO ACUTE CHANGES. ABLE TO SLEEP FOR SEVERAL HOURS AT A TIME T/O NIGHT. PT ABLE TO HAVE BM. BED IN LOWEST POSITION AND CALL LIGHT IN REACH.
--- NOTE | 2023-08-04 11:50 | NUR ---
Spiritual care visit conducted. Patient is lying in bed and alert. He tells me about his childhood days growing up in [facility], his two wives and 6 kids three from each . His last 30 yrs ago. He states that he is unsure about why he is in the hospital and what the D/C plan is for him. I conducted a life review, normalized his experience and provided therapeutic listening. Patient repsonded well and showed signs of an elevated mood. I will continue to remain available to patient and family.
--- NOTE | 2023-08-04 16:34 | NUR ---
PT DC'D WHEELCHAIR TX TO [facility] 1600. SENT WITH DC [employer] INCLUDING RX WRITTEN SCRIPTS. PT SENT WITH HIS BELONGINGS.
== END 2023-08-04 16:19 | disposition hospice, home (50) | DRG 291 ==
LOC: ER 17:07 → MEDS 06-22 01:45 → PCU 06-22 01:45 → MEDS 06-25 11:20
PROVIDERS: Family Medicine; Internal Medicine; Physician Assistant; Student in an Organized Health Care Education/Training Program; ADMIT Student in an Organized Health Care Education/Training Program
DX: I11.0 Hypertensive heart disease with heart failure (principal); I50.21 Acute systolic (congestive) heart failure; J96.21 Acute and chronic respiratory failure with hypoxia; N39.0 Urinary tract infection, site not specified; I42.0 Dilated cardiomyopathy; Z51.5 Encounter for palliative care; Z66 Do not resuscitate; E03.8 Other specified hypothyroidism; F17.210 Nicotine dependence, cigarettes, uncomplicated; E11.51 Type 2 diabetes mellitus with diabetic peripheral angiopathy without gangrene; M54.9 Dorsalgia, unspecified; J44.9 Chronic obstructive pulmonary disease, unspecified; G89.29 Other chronic pain; E78.5 Hyperlipidemia, unspecified; Z79.899 Other long term (current) drug therapy; Z79.84 Long term (current) use of oral hypoglycemic drugs; Z79.82 Long term (current) use of aspirin; Z98.890 Other specified postprocedural states; Z95.828 Presence of other vascular implants and grafts
CPT/HCPCS: 0202U; 36415; 70450; 71046; 71250; 78452; 80048; 80053; 80069; 81001; 82947; 83036; 83605; 83735; 83880; 84145; 84439; 84443; 84484; 85025; 86850; 86900; 86901; 87086; 87449; 93005; 93010; 93017; 94640; 94664; 94760; 94762; 96365; 96375; 97110; 97116; 97129; 97130; 97162; 97165; 97530; 97535; 99285-25; A9270; A9500; C8929; J0280; J0456; J0696; J1650; J1940; J2785; J7030; J7040; J7050; Q9957

== ENCOUNTER 2023-10-04 11:31 | Inpatient (IN) | payer MEDICARE, OTHER ==
[~2023-10-04] VITALS: Ht 167.6 cm; Wt 81.7 kg
[~2023-10-04 11:31] MED LIST changes: +ONDA4ODT MM
[2023-10-04] MEDS ORDERED: Acetaminophen 500 MG Tab PO ONE ×2 (11:55→14:45)
[2023-10-04] MEDS ORDERED: CLON.5 PO (14:27)
[2023-10-04] MEDS ORDERED: DONE5 PO (14:28)
[2023-10-04] MEDS ORDERED: SENNA LAXATIVE8.6 MG PO (14:28)
[2023-10-04 15:01] LABS: BASOPHILS ABSOLUTE AUTO 0.01 K/mm3 (0.00-0.23); BASOPHILS PERCENT AUTO 0 % (0-2); EOSINOPHILS PERCENT AUTO 0 % (0-6); Hemoglobin 16.2 g/dL (13.5-17.5); IMMATURE GRAN ABSOLUTE AUTO 0.03 K/mm3 (0.00-0.10); IMMATURE GRAN PERCENT AUTO 1 % (0-1); LYMPHOCYTES ABSOLUTE AUTO 0.36 K/mm3 (0.84-5.20); LYMPHOCYTES PERCENT AUTO 6 % (21-46); MONOCYTES ABSOLUTE AUTO 0.49 K/mm3 (0.16-1.47); MONOCYTES PERCENT AUTO 8 % (4-13); Mean Corpuscular HGB 31.1 pg (26.0-34.0); Mean Corpuscular HGB Conc 32.4 g/dL (31.5-36.5); Mean Corpuscular Volume 96 fL (80-100); Mean Platelet Volume 10.9 fL (9.1-12.4); NEUTROPHILS ABSOLUTE AUTO 5.58 K/mm3 (1.96-9.15); NEUTROPHILS PERCENT AUTO 86 % (41-73); Platelet Count 164 K/mm3 (150-400); RDW Coefficient Variation 17.7 % (11.7-14.2); RDW Standard Deviation 62.6 fL (35.1-46.3); Red Blood Cell Count 5.21 M/mm3 (4.30-5.90); White Blood Cell Count 6.47 K/mm3 (4.00-11.30)
[2023-10-04 15:25] LABS: Source, Urine Clean Catch
[2023-10-04 15:31] LABS: Appearance, Urine Clear (Clear); Bilirubin, Urine Neg (Neg); Blood, Urine Neg (Neg); Color, Urine Amber (P-Yellow); Glucose Qualitative, Urine Neg (Neg); Ketones, Urine 1+ (Neg); Leukocyte Esterase, Urine Neg (Neg); Nitrite, Urine Neg (Neg); Protein, Urine 2+ (Neg); Specific Gravity, Urine 1.025 (1.003-1.022); Urobilinogen, Urine 3+ (Normal)
[2023-10-04 15:38] LABS: Bacteria Many /hpf; Hyaline Casts 0-2 /lpf (0-2); Mucus Mod (0-Heavy); Red Blood Cells, Urine 0-2 /hpf (0-2); Squamous Epithelial Cells Rare /hpf (Few)
[2023-10-04 15:39] LABS: Albumin, Blood 2.3 g/dL (3.4-5.0); Albumin/Globulin Ratio 0.7 (0.8-1.8); Bilirubin, Total 1.1 mg/dL (0.1-1.0); Bun/Creatinine Ratio 21.9 (12.0-20.0); Calcium, Blood 7.8 mg/dL (8.5-10.1); Creatinine, Blood 0.64 mg/dL (0.60-1.20); Globulin, Blood 3.2 g/dL (2.2-4.0); Potassium, Blood 3.8 mmol/L (3.5-5.5); Total Protein, Blood 5.5 g/dL (6.4-8.2)
[2023-10-04 16:26] VITALS: BP 119/88
--- NOTE | 2023-10-04 17:30 | NUR ---
DR. JONES REQUESTED THAT THIS RN REACH OUT TO FAMILY AND ARRANGE A TIME FOR HIM TO SPEAK WITH THEM TOMORROW MORNING. THIS RN CONTACTED [facility] WHO PROVIDED THE CONTACT INFORMATION FOR MARYELLEN FERNANDEZ'S SON, AND PER [facility] HIS POA. ATTEMPTED TO CONTACT [facility] FOR PT'S POLST INFORMATION, MESSAGE LEFT. MESSAGE LEFT WITH PALLIATIVE CARE REGARDING PT'S HOSPICE STATUS AT HOME. THIS RN REACHED OUT TO MARYELLEN FERNANDEZ'S SON, HE STATED THAT [facility] HAD JUST NOTIFIED HIM THAT THE PT HAD BEEN TAKEN TO THE HOSPITAL. MARYELLEN WAS UPDATED THAT PT HAS A RIGHT HIP FX. MARYELLEN'S PRIMARY CONCERN APPEARED TO BE PT COMFORT. MARYELLEN STATED HE WOULD REMAIN AVALIABLE BY PHONE TODAY AND TOMORROW.
[2023-10-04] MEDS ORDERED: Morphine Sulfate 20 MG/1ML 1 ML Oral Syringe SL PRN (18:00)
--- NOTE | 2023-10-04 18:00 | NUR ---
NOTED CHANGE IN PT APPEARANCE SINCE ARRIVAL FROM ER. SINCE PT ARRIVED FROM ER HE HAS BECOME MORE SOMNOLENT. HE WAKES TO A COMBINATION OF VERBAL AND PHYSICAL STIMULI BUT FALLS ASLEEP WHILE STAFF ARE TALKING TO THE PT. PT'S RESPIRATORY RATE IS VARIABLE, RAPID WITH TIMES OF APNEA. BREATH SOUNDS ARE FAINTLY MOIST. DR. NUNEZ NOTIFIED AND ASKED TO CONTACT PT'S SON REGARDING CONCERNS. PT'S SON DECIDED TO MAKE PT COMFORT CARE. DNR ORDER CONFIRMED WITH MANJEET RN, DNR BAND PLACED.
--- NOTE | 2023-10-04 18:26 | NUR ---
ADMIT ASSESSMENT COMPLETED AT 1630.
--- NOTE | 2023-10-04 18:26 | NUR ---
PT ARRIVED FROM ER AT APPROXIMATELY 1626. PT AWAKE AND ORIENTED X2-3 UPON ARRIVAL. WHEN HE ARRIVED TO THE ROOM HE WAS CYANOTIC AND STAFF WAS INITIALLY UNABLE TO GET AN OXYGEN SATURATION. PT WAS PLACED ON 4L O2 VIA NC. PT ALSO REPORTED FEELING SHORT OF BREATH. PT RESP EFFORT INCREASED, RATE VARIABLE. LUNG SOUNDS RHONCOROUS T/O. 2 RN SKIN ASSESSMENT WAS DONE WITH EDUARDO MEYER. AFTER SEVERAL MINUTES OF PT ON O2 STAFF OBTAINED AND O2 SATURATION OF 98%, CYANOSIS RESOLVED, O2 DECREASED TO 2L.
--- NOTE | 2023-10-04 19:14 | NUR ---
BEDSIDE REPORT DURING BEDSIDE REPORT PT NOTED TO HAVE REMOVED OXYGEN. PT WAS RESTING WITH EYES CLOSED. HE WOKE TO VERBAL STIMULI. PT ORIENTED TO WERE HE IS AND HIS SITUTION. PT DECLINED OXYGEN SO IT WAS LEFT OFF. PT RESP RATE AND EFFORT INCREASED BUT PT DENIES SHORTNESS OF BREATH. HE REPORTS PAIN TO HIS R HIP. BEDSIDE REPORT GIVEN TO LATRICIA MEYER.
[2023-10-04] MEDS ORDERED: Acetaminophen 500 MG Tab PO SCH (20:00)
[2023-10-04] MEDS ORDERED: Albuterol 2.5 MG/3 ML VIAL INH PRN (22:25)
--- NOTE | 2023-10-05 05:01 | NUR ---
SUMMARY- PT HAS BEEN RESTING COMFORTABLY. PT REPOSITIONED TOLERATED. PT HAS COCCYX MEPILEX IN PLACE. PT HAS SOME INCOTIENT VOIDS WELL ABLE TO USE URINAL. PT HAS A BRIEF ON. PT HAD PO ROXANOL WITH PAIN RELIEF. PT HAS BEEN ABLE TO ANSWER SIMPLE QUESTIONS. PT HAS BEEN DRINKING SOME PO FLUIDS. CALL LIGHT IN REACH AND BED ALARM ON.
[2023-10-05 05:08] LABS: Hemoglobin 17.1 g/dL (13.5-17.5); Mean Corpuscular HGB 30.4 pg (26.0-34.0); Mean Corpuscular HGB Conc 32.3 g/dL (31.5-36.5); Mean Corpuscular Volume 94 fL (80-100); Mean Platelet Volume 10.8 fL (9.1-12.4); Platelet Count 178 K/mm3 (150-400); RDW Coefficient Variation 18.4 % (11.7-14.2); RDW Standard Deviation 63.4 fL (35.1-46.3); Red Blood Cell Count 5.62 M/mm3 (4.30-5.90); White Blood Cell Count 6.42 K/mm3 (4.00-11.30)
[2023-10-05 05:28] LABS: Albumin, Blood 2.8 g/dL (3.4-5.0); Anion Gap 12 mmol/L (3-11); Blood Urea Nitrogen 13 mg/dL (8-24); Bun/Creatinine Ratio 17.3 (12.0-20.0); CO2, Blood 28 mmol/L (21-32); Calcium, Blood 8.9 mg/dL (8.5-10.1); Chloride, Blood 106 mmol/L (98-108); Creatinine, Blood 0.75 mg/dL (0.60-1.20); Glomerular Filtration Rate 91 (60-); Glucose, Blood 104 mg/dL (70-99); Magnesium, Blood 2.1 mg/dL (1.6-2.4); Phosphorus, Blood 3.7 mg/dL (2.5-4.9); Potassium, Blood 3.9 mmol/L (3.5-5.5); Sodium, Blood 142 mmol/L (136-145)
--- NOTE | 2023-10-05 11:53 | NUR ---
.Spiritual Care Visit. Pt. is awake in bed and welcomed my visit. Pt. was pleasant, but displayed evidence of discomfort. Facilitated a short life review. Confirmeed that he had been visited by the eucharitic volunteers. Pt. displayed evidence of awareness and understanding but his level of discomfort kept our visit short. Pt. grabbed my hand as i prayed for him, and he verbalized gratitude for the spiritual care visit
--- NOTE | 2023-10-05 13:11 | NUR ---
ATTEMPTED TO CALL [facility] AT 1300, NO ANSWER. LEFT A MESSAGE TO CALL UNIT BACK
--- NOTE | 2023-10-05 13:22 | NUR ---
DISCHARGE: PT BACK TO [facility] ON HOSPICE. REPORT GIVEN TO RN, BONIFACIO AT THIS TIME. PT IV DC'D TIP INTACT, WNL. TRANSPORT HERE AT 1315 TO GET PT. TRANSPORT GIVEN DC PACKET.
== END 2023-10-05 13:15 | disposition hospice, inpatient (51) | DRG 536 ==
LOC: ER 11:31 → SURS 14:33
PROVIDERS: Emergency Medicine; ADMIT Internal Medicine
DX: S72.141A Displaced intertrochanteric fracture of right femur, initial encounter for closed fracture (principal); I50.22 Chronic systolic (congestive) heart failure; I42.9 Cardiomyopathy, unspecified; W18.30XA Fall on same level, unspecified, initial encounter; J44.9 Chronic obstructive pulmonary disease, unspecified; M54.9 Dorsalgia, unspecified; F03.90 Unspecified dementia, unspecified severity, without behavioral disturbance, psychotic disturbance, mood disturbance, and anxiety; G89.29 Other chronic pain; Z66 Do not resuscitate; Z51.5 Encounter for palliative care; E78.5 Hyperlipidemia, unspecified; M51.36 Other intervertebral disc degeneration, lumbar region; Z79.899 Other long term (current) drug therapy; Z98.890 Other specified postprocedural states; Z95.820 Peripheral vascular angioplasty status with implants and grafts; I11.0 Hypertensive heart disease with heart failure; N40.0 Benign prostatic hyperplasia without lower urinary tract symptoms; E11.9 Type 2 diabetes mellitus without complications; F17.210 Nicotine dependence, cigarettes, uncomplicated; Z87.440 Personal history of urinary (tract) infections
CPT/HCPCS: 36415; 71045; 73552; 80053; 80069; 81001; 83735; 85025; 85027; 87086; 93005; 93010; 93971; 99285-25; A9270